=== PATIENT | female | born 1995 | race African-American/Black ===

== ENCOUNTER 2016-08-25 00:10 | Emergency (ER) | payer BC ==
[2016-08-25 00:48] VITALS: BP 138/91
--- NOTE | 2016-08-25 01:04 | EDM.PDOC ---
ED HPI GENERAL MEDICAL PROBLEM - General Chief Complaint: 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 Problem Stated Complaint: VOMITING NOT FEELING WELL Time Seen by Provider: 08/25/16 00:55 Source of Information: Reports: Patient, Old Records, RN Notes Reviewed History Limitations: Reports: No Limitations - History of Present Illness INITIAL COMMENTS - FREE TEXT/NARRATIVE: Drove herself here Chief complaint Vomiting History of present illness 21-year-old female, she is just 2 months , has return to work effective refractory, started developing nausea vomiting and diarrhea today. 3 episodes of diarrhea and 2 episodes of emesis. Because of this she was sent out from work and told to get checked. Her 2-month-old daughter was ill last week and was taken to the doctor 3 times and is finally improving. She has had some right-sided abdominal pain for a week She delivered vaginally She is not breast-feeding No fever Tired Headache Pain Score (Numeric/FACES): 6 - Related Data Allergies Allergy/AdvReac Type Severity Reaction Status Date / Time cefixime [From Suprax] Allergy Rash Verified 08/25/16 00:39 Home Meds: Home Meds Albuterol [Ventolin HFA] 2 puff INH BID PRN 08/25/16 [History] Albuterol/Ipratropium [Combivent Respimat] 2 puff INH QID PRN 08/25/16 [History] Budesonide/Formoterol Fumarate [Symbicort 80-4.5 Mcg Inhaler] 1 puff IH DAILY [History] Montelukast [Singulair] 10 mg PO ONETIME 08/25/16 [History] Ondansetron [Ondansetron ODT] 4 mg PO Q6H PRN #5 tab.rapdis 08/25/16 [Rx] Past Medical History Respiratory History: Reports: Asthma [employer]ER History: Reports: Psychiatric History: Reports: Anxiety - Infectious Disease History Infectious Disease History: Reports: Chicken Pox Social & Family History - Tobacco Use Smoking Status *Q: Never Smoker Second Hand Smoke Exposure: No - Caffeine Use Caffeine Use: Reports: Soda, Tea - Alcohol Use Days Per Week of Alcohol Use: 0 - Recreational Drug Use Recreational Drug Use: No ED ROS GENERAL - Review of Systems Review Of Systems: See Below Constitutional: Reports: Fatigue. Denies: Fever, Chills, Diaphoresis HEENT: Reports: No Symptoms Respiratory: Reports: No Symptoms Cardiovascular: Reports: No Symptoms Endocrine: Reports: No Symptoms GI/Abdominal: Reports: Abdominal Pain, Diarrhea, Nausea, Vomiting. Denies: Distension : Reports: No Symptoms Musculoskeletal: Reports: No Symptoms Skin: Reports: No Symptoms Neurological: Reports: No Symptoms Psychiatric: Reports: No Symptoms Immunologic: Reports: No Symptoms ED EXAM, GI/ABD - Physical Exam Exam: See Below Exam Limited By: No Limitations General Appearance: Alert, No Apparent Distress, Other (Vital signs normal, no difficulty speaking or breathing, looks tired, color normal) Eyes: Bilateral: Normal Appearance Ears: Normal External Exam, Normal Canal, Hearing Grossly Normal, Normal TMs Nose: Normal Inspection, Normal Mucosa. No: Nasal Swelling Throat/Mouth: Normal Lips, Normal Gums, Normal Oropharynx, Other ([facility]) Head: Atraumatic Neck: Normal Inspection, Supple, Non-Tender Respiratory/Chest: No Respiratory Distress, Lungs Clear, Normal Breath Sounds Cardiovascular: Normal Peripheral Pulses, Regular Rate, Rhythm GI/Abdominal: Normal Bowel Sounds, Soft, No Distention, No Mass, Other (Mild tenderness to the right side of the abdomen above McBurney's area, no guarding no rebound) Back Exam: Normal Inspection Extremities: Normal Inspection, Non-Tender, No Pedal Edema, Normal Capillary Refill Neurological: Alert, Oriented, No Motor/Sensory Deficits Psychiatric: Normal Mood Skin Exam: Warm, Dry, Intact, Normal Color, No Rash Lymphatic: No Adenopathy Course - Vital Signs Last Recorded V/S: Last Vital Signs Temp 36.4 C 08/25/16 00:46 Pulse 69 08/25/16 00:46 Resp 16 08/25/16 00:46 BP 138/91 H 08/25/16 00:46 Pulse Ox 98 08/25/16 00:46 - Re-Assessments/Exams Free Text/Narrative Re-Assessment/Exam: 08/25/16 01:12 21-year-old female with a one-day history of nausea vomiting diarrhea. Most likely viral gastroenteritis Differential diagnoses includes other causes of diarrhea Drink plenty of fluids, small amounts frequently Electrolyte replacement solutions Ondansetron as needed for nausea Note for missing work Departure - Departure Time of Disposition: 01:04 Disposition: Home, Self-Care 01 Condition: good Clinical Impression: Gastroenteritis - Discharge Information Prescriptions: Ondansetron [Ondansetron ODT] 4 mg PO Q6H PRN #5 tab.rapdis PRN Reason: Nausea or vomiting Instructions: Viral Gastroenteritis, Adult, [id number] Referrals: PCP,None [Primary Care Provider] - Forms: ED Department Discharge, Return to Work/School Form Additional Instructions: Return to emergency if you have repeated vomiting, high fever, severe weakness or other new symptoms.
== END 2016-08-25 01:26 | disposition home or self-care (01) ==
LOC: JP.ED 00:10
DX: K52.9 Noninfective gastroenteritis and colitis, unspecified (principal); J45.909 Unspecified asthma, uncomplicated; Z88.1 Allergy status to other antibiotic agents; Z79.899 Other long term (current) drug therapy
CPT/HCPCS: 99284

== ENCOUNTER 2016-09-01 23:12 | Emergency (ER) | payer BC ==
[2016-09-01 23:30] VITALS: BP 145/89
[2016-09-01] MEDS ORDERED: Sodium Chloride 0.9% 1,000 ML IV SCH (23:45)
[2016-09-01] MEDS ORDERED: Ondansetron 4 MG/2 ML SDV IVPUSH ONE (23:47)
[2016-09-02] MEDS ORDERED: Lactated Ringers 1,000 ML IV SCH (00:30)
--- NOTE | 2016-09-02 02:05 | EDM.PDOC ---
ED HPI GENERAL MEDICAL PROBLEM - General Chief Complaint: Abdominal Pain Stated Complaint: STOMACH PAIN/VOMITING Time Seen by Provider: 09/01/16 23:45 Source of Information: Reports: Patient History Limitations: Reports: No Limitations - History of Present Illness INITIAL COMMENTS - FREE TEXT/NARRATIVE: History of present illness: [21-year-old female presenting with nausea vomiting for the last 24 hours. No diarrhea or dysuria with this. No constipation no fever or chills. She just had her period. She has had some mild right lower quadrant abdominal pain with this. No prior appendectomy. She has 1 baby.] Review of systems: As per history of present illness and below otherwise all systems reviewed and negative. Past medical history: As per history of present illness and as reviewed below otherwise noncontributory. Surgical history: As per history of present illness and as reviewed below otherwise noncontributory. Social history: No reported history of drug or alcohol abuse. Family history: As per history of present illness and as reviewed below otherwise noncontributory. Physical exam: HEENT: Atraumatic, normocephalic, pupils reactive, negative for conjunctival pallor or scleral icterus, mucous membranes moist, throat clear, neck supple, nontender, trachea midline. Lungs: Clear to auscultation, breath sounds equal bilaterally, chest nontender. Heart: S1S2, regular, negative for clicks, rubs, or JVD. Abdomen: Soft, nondistended, she does have tenderness to palpation in the right lower quadrant without peritoneal signs. Negative for masses or hepatosplenomegaly. Negative for costovertebral tenderness. Pelvis: Stable nontender. Genitourinary: Deferred. Rectal: Deferred. Extremities: Atraumatic, negative for cords or calf pain. Neurovascular unremarkable. Neuro: Awake, alert, oriented. Cranial nerves II through XII unremarkable. Cerebellum unremarkable. Motor and sensory unremarkable throughout. Exam nonfocal. Diagnostics: [CBC shows anemia with hemoglobin of 10.3 elevated white count is not present. Complete metabolic panel is unremarkable urine test is negative urinalysis unremarkable abdominal pelvic CT are negative.] Therapeutics: [She received IV fluids in the ER with IV Zofran in the improved with this.] Impression: [Nausea and vomiting] Plan: [I'm discharging her with Zofran and she can follow-up in the clinic or the ER she's not improving over the next couple of days.] Definitive disposition and diagnosis as appropriate pending reevaluation and review of above. Right Middle Abdomen Pain Score (Numeric/FACES): 6 - Related Data Allergies Allergy/AdvReac Type Severity Reaction Status Date / Time cefixime [From Suprax] Allergy Rash Verified 08/25/16 00:39 Home Meds: Home Meds Albuterol [Ventolin HFA] 2 puff INH BID PRN 08/25/16 [History] Albuterol/Ipratropium [Combivent Respimat] 2 puff INH QID PRN 08/25/16 [History] Budesonide/Formoterol Fumarate [Symbicort 80-4.5 Mcg Inhaler] 1 puff IH DAILY [History] Montelukast [Singulair] 10 mg PO ONETIME 08/25/16 [History] Past Medical History - Past Health History Medical/Surgical History: Denies Medical/Surgical History 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 ED EXAM, GI/ABD - Physical Exam Exam: See Below Course - Vital Signs Last Recorded V/S: Last Vital Signs Temp 35.7 C 09/01/16 23:29 Pulse 95 09/01/16 23:29 Resp 18 09/01/16 23:29 BP 145/89 H 09/01/16 23:29 Pulse Ox 99 09/01/16 23:29 - Orders/Labs/Meds Orders: Active Orders 24 hr Category Date Time Status Abdomen Pelvis wo Cont [CT] Stat Exams 09/02/16 00:01 Ordered UA W/MICROSCOPIC [URIN] Stat Lab 09/01/16 23:45 Uncollected Lactated Ringers [Ringers, Lactated] 1,000 ml Med 09/02/16 00:30 Active IV ASDIRECTED Medication Orders Lactated Ringer's (Ringers, Lactated) 1,000 mls @ 999 mls/hr IV ASDIRECTED [facility] Labs: Laboratory Tests 09/01/16 09/01/16 09/02/16 Range/Units 23:45 23:45 00:34 WBC 6.8 (4.5-11.0) K/uL RBC 4.30 (3.30-5.50) M/uL Hgb 10.3 L (12.0-15.0) g/dL Hct 32.8 L (36.0-48.0) % MCV 76 L (80-98) fL MCH 24 L (27-31) pg MCHC 31 L (32-36) % Plt Count 425 H (150-400) K/uL Neut % (Auto) 45 (36-66) % Lymph % (Auto) 42 (24-44) % [place] % (Auto) 9 H (2-6) % Eos % (Auto) 4 (2-4) % Baso % (Auto) 1 (0-1) % Sodium 141 (140-148) mmol/L Potassium 3.0 L (3.6-5.2) mmol/L Chloride 103 (100-108) mmol/L Carbon Dioxide 26 (21-32) mmol/L Anion Gap 15.0 H (5.0-14.0) mmol/L BUN 6 L (7-18) mg/dL Creatinine 0.8 (0.6-1.0) mg/dL Est Cr Clr Drug Dosing 87.95 mL/min Estimated GFR (MDRD) > 60 (>60) Glucose 93 (74-106) mg/dL Calcium 8.5 (8.5-10.1) mg/dL Total Bilirubin 0.2 (0.2-1.0) mg/dL AST 17 (15-37) U/L ALT 16 (12-78) U/L Alkaline Phosphatase 82 (46-116) U/L Total Protein 6.9 (6.4-8.2) g/dL Albumin 3.7 (3.4-5.0) g/dL Globulin 3.2 (2.3-3.5) g/dL Albumin/Globulin Ratio 1.2 (1.2-2.2) HCG, Qual Negative Meds: Medications Generic Name Dose Route Start Last Admin Trade Name Freq PRN Reason Stop Dose Admin Lactated Ringer's 1,000 mls @ 999 mls/hr 06/21/17 00:30 Ringers, Lactated IV ASDIRECTED [facility] Discontinued Medications Generic Name Dose Route Start Last Admin Trade Name Tereso PRN Reason Stop Dose Admin Sodium Chloride 1,000 mls @ 500 mls/hr 09/01/16 23:45 09/02/16 00:00 Normal Saline IV 500 mls/hr ASDIRECTED [facility] Administration Ondansetron HCl 4 mg 09/01/16 23:47 09/02/16 00:00 Zofran IVPUSH 09/01/16 23:48 4 mg ONETIME ONE Administration Departure - Departure Time of Disposition: 02:00 Disposition: Home, Self-Care 01 Condition: Good Clinical Impression: Nausea and vomiting Qualifiers: Vomiting type: unspecified Vomiting Intractability: non-intractable Qualified Code(s): R11.2 - Nausea with vomiting, unspecified - Discharge Information Forms: ED Department Discharge Additional Instructions: He will are provided with Zofran a medication that you can use for nausea and vomiting. You are excused from work tonight and tomorrow night and you can show this to your employer as your work excuse. Please follow-up in the clinic or the ER if not improving. - My Orders Last 24 Hours: My Active Orders 09/01/16 23:45 UA W/MICROSCOPIC [URIN] Stat 09/02/16 00:01 Abdomen Pelvis wo Cont [CT] Stat 09/02/16 00:30 Lactated Ringers [Ringers, Lactated] 1,000 ml IV ASDIRECTED - Assessment/Plan Last 24 Hours: My Active Orders 09/01/16 23:45 UA W/MICROSCOPIC [URIN] Stat 09/02/16 00:01 Abdomen Pelvis wo Cont [CT] Stat 09/02/16 00:30 Lactated Ringers [Ringers, Lactated] 1,000 ml IV ASDIRECTED
== END 2016-09-02 02:45 | disposition home or self-care (01) ==
LOC: JP.ED 23:12
DX: R11.2 Nausea with vomiting, unspecified (principal); R10.31 Right lower quadrant pain; J45.909 Unspecified asthma, uncomplicated; Z79.899 Other long term (current) drug therapy; Z88.1 Allergy status to other antibiotic agents
CPT/HCPCS: 36415; 74176; 80053; 84703; 85025; 96361; 96374; 99284; J2405; J7040; J7120

== ENCOUNTER 2016-09-10 22:02 | Emergency (ER) | payer BC ==
[2016-09-10 22:20] VITALS: BP 131/91
--- NOTE | 2016-09-10 22:59 | EDM.PDOC ---
ED HPI GENERAL MEDICAL PROBLEM - General Chief Complaint: 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 Problem Stated Complaint: VOMITING Time Seen by Provider: 09/10/16 22:14 Source of Information: Reports: Patient History Limitations: Reports: No Limitations - History of Present Illness INITIAL COMMENTS - FREE TEXT/NARRATIVE: History of present illness: [21-year-old female I saw several days ago with nausea vomiting and epigastric abdominal pain since then she's been seen in the [place] ER as well and they told her that they wondered if she had and also she'll need to be scoped but they didn't set that up. She doctors in [place] and her doctors there. Presents here continue to complain of epigastric abdominal pain and intermittent nausea and vomiting. She does have Zofran for that and also started on omeprazole. She' s had no fevers or chills. Her urine test was negative last time I saw her but she was a little anemic.] Review of systems: As per history of present illness and below otherwise all systems reviewed and negative. Past medical history: As per history of present illness and as reviewed below otherwise noncontributory. Surgical history: As per history of present illness and as reviewed below otherwise noncontributory. Social history: No reported history of drug or alcohol abuse. Family history: As per history of present illness and as reviewed below otherwise noncontributory. Physical exam: HEENT: Atraumatic, normocephalic, pupils reactive, negative for conjunctival pallor or scleral icterus, mucous membranes moist, throat clear, neck supple, nontender, trachea midline. She appears very comfortable in no acute distress tenderness sitting in the room to extending. Lungs: Clear to auscultation, breath sounds equal bilaterally, chest nontender. Heart: S1S2, regular, negative for clicks, rubs, or JVD. Abdomen: She has minor tenderness to palpation of the epigastric area she has no peritoneal signs bowel sounds are active. Pelvis: Stable nontender. Genitourinary: Deferred. Rectal: Deferred. Extremities: Atraumatic, negative for cords or calf pain. Neurovascular unremarkable. Her skin turgor is good Neuro: Awake, alert, oriented. Exam nonfocal. Diagnostics: [] Therapeutics: [] Impression: [Nausea and vomiting with epigastric abdominal pain] Plan: [I've advised her to just call [facility] tomorrow to see if somebody can sit up endoscopy for her. She's been seen by me and there and we both have come to the conclusion that the next step in the process of working her up would be endoscopy. She looks good now I don't think any further workup other than what we've done is necessary at this point] Definitive disposition and diagnosis as appropriate pending reevaluation and review of above. Upper Mid Abdomen Pain Score (Numeric/FACES): 8 - Related Data Allergies Allergy/AdvReac Type Severity Reaction Status Date / Time cefixime [From Suprax] Allergy Rash Verified 08/25/16 00:39 Home Meds: Home Meds Albuterol [Ventolin HFA] 2 puff INH BID PRN 08/25/16 [History] Albuterol/Ipratropium [Combivent Respimat] 2 puff INH QID PRN 08/25/16 [History] Budesonide/Formoterol Fumarate [Symbicort 80-4.5 Mcg Inhaler] 1 puff IH DAILY [History] Montelukast [Singulair] 10 mg PO ONETIME 08/25/16 [History] Omeprazole 20 mg PO DAILY 09/10/16 [History] Past Medical History - Past Health History Medical/Surgical History: Denies Medical/Surgical History Respiratory History: Reports: Asthma IN [employer] History: Reports: Psychiatric History: Reports: Anxiety - Infectious Disease History Infectious Disease History: Reports: Chicken Pox Social & Family History - Tobacco Use Smoking Status *Q: Current Status Unknown Second Hand Smoke Exposure: No - Caffeine Use Caffeine Use: Reports: Soda - Alcohol Use Days Per Week of Alcohol Use: 0 - Recreational Drug Use Recreational Drug Use: No ED ROS GENERAL - Review of Systems Review Of Systems: ROS reveals no pertinent complaints other than HPI. ED EXAM, GI/ABD - Physical Exam Exam: See Below Course - Vital Signs Last Recorded V/S: Last Vital Signs Temp 35.8 C 09/10/16 22:19 Pulse 99 09/10/16 22:19 Resp 16 09/10/16 22:19 BP 131/91 H 09/10/16 22:19 Pulse Ox 97 09/10/16 22:19 Departure - Departure Time of Disposition: 22:57 Disposition: Home, Self-Care 01 Condition: Good Clinical Impression: Epigastric abdominal pain Nausea and vomiting Qualifiers: Vomiting type: unspecified Vomiting Intractability: unspecified Qualified Code( s): R11.2 - Nausea with vomiting, unspecified - Discharge Information Forms: ED Department Discharge Additional Instructions: Once again I recommend that you call [facility] and try to get scheduled for upper endoscopy. 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 Continue with the Zofran and omeprazole
== END 2016-09-10 23:20 | disposition home or self-care (01) ==
LOC: JP.ED 22:02
DX: R10.13 Epigastric pain (principal); R11.2 Nausea with vomiting, unspecified; F41.9 Anxiety disorder, unspecified; Z79.899 Other long term (current) drug therapy; J45.909 Unspecified asthma, uncomplicated; Z88.1 Allergy status to other antibiotic agents
CPT/HCPCS: 99284

== ENCOUNTER 2016-09-18 22:51 | Emergency (ER) | payer BC ==
[2016-09-18 23:34] VITALS: BP 131/86
[2016-09-19] MEDS ORDERED: Sodium Chloride 0.9% 10 ML Syringe FLUSH PRN (00:43)
[2016-09-19] MEDS ORDERED: Sodium Chloride 0.9% 1,000 ML IV SCH (00:45)
[2016-09-19] MEDS ORDERED: Pantoprazole 40 MG Vial IVPUSH ONE (01:22)
[2016-09-19] MEDS ORDERED: Metoclopramide 10 MG/2 ML SDV IVPUSH ONE (01:25)
--- NOTE | 2016-09-19 02:28 | EDM.PDOC ---
ED HPI GENERAL MEDICAL PROBLEM - General Chief Complaint: Abdominal Pain Stated Complaint: VOMITING Time Seen by Provider: 09/19/16 00:25 Source of Information: Reports: Patient, Old Records History Limitations: Reports: No Limitations - History of Present Illness INITIAL COMMENTS - FREE TEXT/NARRATIVE: nausea and vomiting for 3 days; this is a 21 year old female present to ER with concerns of prolong nausea and vomiting. reports ate macroni, garlic bread, the food sits for about 20 to 30 minutes, then she feel sick and vomits everything up. has Zofran at home, but doesn't like taking it because make her sleepy. work nights at [employer] has 3 month old daughter at home. denies any other drug use past hx of ulcer, dx 2 years ago Primary Care Provider; MANUELA Camargo. chart review; of ER visits at [place], [place]. -08-25-16; vomting -09-01-16 stomache pain and vomiting -09-10-16 vomiting and constipation -09-02-[address] -no acue intra-abdominal or pelvic abnormality Provider and Primary Care recommend Endoscopy. - Related Data Allergies Allergy/AdvReac Type Severity Reaction Status Date / Time cefixime [From Suprax] Allergy Rash Verified 08/25/16 00:39 Home Meds: Home Meds Albuterol [Ventolin HFA] 2 puff INH BID PRN 08/25/16 [History] Albuterol/Ipratropium [Combivent Respimat] 2 puff INH QID PRN 08/25/16 [History] Budesonide/Formoterol Fumarate [Symbicort 80-4.5 Mcg Inhaler] 1 puff IH DAILY [History] Montelukast [Singulair] 10 mg PO ONETIME 08/25/16 [History] Omeprazole 20 mg PO DAILY 09/10/16 [History] Past Medical History - Past Health History Medical/Surgical History: Denies Medical/Surgical History Respiratory History: Reports: Asthma [employer] P[employer] History: Reports: Psychiatric History: Reports: Anxiety - Infectious Disease History Infectious Disease History: Reports: Chicken Pox Social & Family History - Family History Family Medical History: Noncontributory - Tobacco Use Smoking Status *Q: Never Smoker Second Hand Smoke Exposure: No - Caffeine Use Caffeine Use: Reports: Soda - Alcohol Use Days Per Week of Alcohol Use: 0 - Recreational Drug Use Recreational Drug Use: No - Living Situation & Occupation Living situation: Reports: with Family Occupation: Employed ED ROS GENERAL - Review of Systems Review Of Systems: See Below Constitutional: Reports: Malaise, Decreased Appetite HEENT: Reports: No Symptoms Respiratory: Reports: No Symptoms Cardiovascular: Reports: No Symptoms Endocrine: Reports: No Symptoms GI/Abdominal: Reports: Abdominal Pain, Nausea, Vomiting : Reports: No Symptoms Musculoskeletal: Reports: No Symptoms Skin: Reports: No Symptoms Neurological: Reports: No Symptoms Psychiatric: Reports: No Symptoms Hematologic/Lymphatic: Reports: No Symptoms Immunologic: Reports: No Symptoms ED EXAM, GI/ABD - Physical Exam Exam: See Below Exam Limited By: No Limitations General Appearance: Alert, WD/WN, No Apparent Distress Eyes: Bilateral: Normal Appearance, EOMI Ears: Normal External Exam, Normal Canal, Hearing Grossly Normal, Normal TMs Nose: Normal Inspection, Normal Mucosa, No Blood Throat/Mouth: Normal Inspection, Normal Lips, Normal Teeth, Normal Gums, Normal Oropharynx, Normal Voice, No Airway Compromise Head: Atraumatic Neck: Normal Inspection, Supple, Non-Tender, Full Range of Motion Respiratory/Chest: No Respiratory Distress Cardiovascular: Normal Peripheral Pulses, Regular Rate, Rhythm, No Edema, No Gallop, No JVD, No Murmur, No Rub GI/Abdominal: Normal Bowel Sounds, Soft, No Organomegaly, No Distention, No Abnormal Bruit, No Mass, Hypoactive Bowel Sounds, Tenderness (Female) Exam: Deferred Rectal (Female) Exam: Deferred Back Exam: Normal Inspection, Full Range of Motion Neurological: Alert, Oriented, CN II-XII Intact, Normal Cognition, Normal Gait, Normal Reflexes, No Motor/Sensory Deficits Psychiatric: Normal Affect, Normal Mood Skin Exam: Warm, Dry, Intact, Normal Color, No Rash Lymphatic: No Adenopathy Course - Vital Signs Last Recorded V/S: Last Vital Signs Temp 36.1 C 09/18/16 23:33 Pulse 82 09/18/16 23:33 Resp 16 09/18/16 23:33 BP 131/86 09/18/16 23:33 Pulse Ox 99 09/18/16 23:33 - Orders/Labs/Meds Orders: Active Orders 24 hr Category Date Time Status Saline Lock Insert [OM.PC] Routine Oth 09/19/16 00:43 Ordered Labs: Laboratory Tests 09/18/16 09/19/16 09/19/16 Range/Units 23:20 00:10 00:25 WBC (4.5-11.0) K/uL RBC (3.30-5.50) M/uL Hgb (12.0-15.0) g/dL Hct (36.0-48.0) % MCV (80-98) fL MCH (27-31) pg MCHC (32-36) % Plt Count (150-400) K/uL Neut % (Auto) (36-66) % Lymph % (Auto) (24-44) % Rice % (Auto) (2-6) % Eos % (Auto) (2-4) % Baso % (Auto) (0-1) % Sodium (140-148) mmol/L Potassium (3.6-5.2) mmol/L Chloride (100-108) mmol/L Carbon Dioxide (21-32) mmol/L Anion Gap (5.0-14.0) mmol/L BUN (7-18) mg/dL Creatinine (0.6-1.0) mg/dL Est Cr Clr Drug Dosing mL/min Estimated GFR (MDRD) (>60) Glucose (74-106) mg/dL Calcium (8.5-10.1) mg/dL Magnesium (1.8-2.4) mg/dL Total Bilirubin (0.2-1.0) mg/dL AST (15-37) U/L ALT (12-78) U/L Alkaline Phosphatase (46-116) U/L Total Protein (6.4-8.2) g/dL Albumin (3.4-5.0) g/dL Globulin (2.3-3.5) g/dL Albumin/Globulin Ratio (1.2-2.2) Amylase (25-115) U/L Lipase (73-393) U/L TSH, Ultra Sensitive (0.358-3.740) uIU/mL Urine Color Yellow Urine Appearance Clear Urine pH 5.0 (4.5-8.0) Ur Specific [place] 1.015 (1.008-1.030) Urine Protein 30 H (NEGATIVE) mg/dL Urine Glucose (UA) Normal (NEGATIVE) mg/dL Urine Ketones Negative (NEGATIVE) mg/dL Urine Occult Blood Large (NEGATIVE) Urine Nitrite Negative (NEGATIVE) Urine Bilirubin Negative (NEGATIVE) Urine Urobilinogen Normal (NORMAL) mg/dL Ur Leukocyte Esterase Negative (NEGATIVE) Urine RBC 10-20 H (0-5) Urine WBC 0-5 (0-5) Ur Epithelial Cells Few Amorphous Sediment Not seen Urine Bacteria Not seen Urine Mucus Few Urine HCG, Qual Negative Urine Opiates Screen Negative (NEGATIVE) Ur Oxycodone Screen Negative (NEGATIVE) Urine Methadone Screen Negative (NEGATIVE) Ur Propoxyphene Screen Negative (NEGATIVE) Ur Barbiturates Screen Negative (NEGATIVE) Ur Tricyclics Screen Negative (NEGATIVE) Ur Phencyclidine Scrn Negative (NEGATIVE) Ur Amphetamine Screen Negative (NEGATIVE) U Methamphetamines Scrn Negative (NEGATIVE) Urine MDMA Screen Negative (NEGATIVE) U Benzodiazepines Scrn Negative (NEGATIVE) U Cocaine Metab Screen Negative (NEGATIVE) U Marijuana (THC) Screen Negative (NEGATIVE) 09/19/16 09/19/16 Range/Units 00:52 00:52 WBC 7.1 (4.5-11.0) K/uL RBC 4.51 (3.30-5.50) M/uL Hgb 10.8 L (12.0-15.0) g/dL Hct 34.0 L (36.0-48.0) % MCV 75 L (80-98) fL MCH 24 L (27-31) pg MCHC 32 (32-36) % Plt Count 390 (150-400) K/uL Neut % (Auto) 59 (36-66) % Lymph % (Auto) 34 (24-44) % Rice % (Auto) 6 (2-6) % Eos % (Auto) 1 L (2-4) % Baso % (Auto) 1 (0-1) % Sodium 138 L (140-148) mmol/L Potassium 3.9 (3.6-5.2) mmol/L Chloride 103 (100-108) mmol/L Carbon Dioxide 27 (21-32) mmol/L Anion Gap 11.9 (5.0-14.0) mmol/L BUN 8 (7-18) mg/dL Creatinine 0.9 (0.6-1.0) mg/dL Est Cr Clr Drug Dosing 78.86 mL/min Estimated GFR (MDRD) > 60 (>60) Glucose 92 (74-106) mg/dL Calcium 9.0 (8.5-10.1) mg/dL Magnesium 1.8 (1.8-2.4) mg/dL Total Bilirubin 0.3 (0.2-1.0) mg/dL AST 15 (15-37) U/L ALT 14 (12-78) U/L Alkaline Phosphatase 70 (46-116) U/L Total Protein 7.5 (6.4-8.2) g/dL Albumin 3.9 (3.4-5.0) g/dL Globulin 3.6 H (2.3-3.5) g/dL Albumin/Globulin Ratio 1.1 L (1.2-2.2) Amylase 65 (25-115) U/L Lipase 107 (73-393) U/L TSH, Ultra Sensitive 0.291 L (0.358-3.740) uIU/mL Urine Color Urine Appearance Urine pH (4.5-8.0) Ur Specific [place] (1.008-1.030) Urine Protein (NEGATIVE) mg/dL Urine Glucose (UA) (NEGATIVE) mg/dL Urine Ketones (NEGATIVE) mg/dL Urine Occult Blood (NEGATIVE) Urine Nitrite (NEGATIVE) Urine Bilirubin (NEGATIVE) Urine Urobilinogen (NORMAL) mg/dL Ur Leukocyte Esterase (NEGATIVE) Urine RBC (0-5) Urine WBC (0-5) Ur Epithelial Cells Amorphous Sediment Urine Bacteria Urine Mucus Urine HCG, Qual Urine Opiates Screen (NEGATIVE) Ur Oxycodone Screen (NEGATIVE) Urine Methadone Screen (NEGATIVE) Ur Propoxyphene Screen (NEGATIVE) Ur Barbiturates Screen (NEGATIVE) Ur Tricyclics Screen (NEGATIVE) Ur Phencyclidine Scrn (NEGATIVE) Ur Amphetamine Screen (NEGATIVE) U Methamphetamines Scrn (NEGATIVE) Urine MDMA Screen (NEGATIVE) U Benzodiazepines Scrn (NEGATIVE) U Cocaine Metab Screen (NEGATIVE) U Marijuana (THC) Screen (NEGATIVE) Meds: Medications Discontinued Medications Generic Name Dose Route Start Last Admin Trade Name Freq PRN Reason Stop Dose Admin Sodium Chloride 1,000 mls @ 999 mls/hr 09/19/16 00:45 09/19/16 01:18 Normal Saline IV 999 mls/hr ASDIRECTED OUMOU Administration Metoclopramide HCl 5 mg 09/19/16 01:25 09/19/16 01:34 Reglan IVPUSH 09/19/16 01:26 5 mg ONETIME ONE Administration Pantoprazole Sodium 40 mg 09/19/16 01:22 09/19/16 01:31 Protonix Iv IVPUSH 09/19/16 01:23 40 mg ONETIME ONE Administration Sodium Chloride 10 ml 09/19/16 00:43 09/19/16 01:16 Saline Flush FLUSH 10 ml ASDIRECTED PRN Administration Keep Vein Open Departure - Departure Time of Disposition: 02:40 Disposition: Home, Self-Care 01 Condition: Good Clinical Impression: Nausea and vomiting Qualifiers: Vomiting type: cyclical vomiting Vomiting Intractability: non-intractable Qualified Code(s): G43.A0 - Cyclical vomiting, not intractable - Discharge Information Instructions: Nausea, Adult Referrals: PCP,None [Primary Care Provider] - Forms: ED Department Discharge Care Plan Goals: Nausea and Vomiting -given IV fluids. IV Reglan, IV Protonix with improvement of symptoms will discharge to home -script for Reglan 10mg by mouth 30 mins before meals and at bedtime -continue to take Prilosec/Omeprazole daily for ulcer prevention/management -diet; clear liquids advance as tolerated -avoid greasy, fried or spicy foods Follow up with Primary Care next week for recheck. Return to ER if symptoms return. - Problem List & Annotations (1) Nausea and vomiting SNOMED Code(s): 24438495 Code(s): R11.2 - NAUSEA WITH VOMITING, UNSPECIFIED Status: Acute Priority : High Qualifiers: Vomiting type: cyclical vomiting Vomiting Intractability: non-intractable Qualified Code(s): G43.A0 - Cyclical vomiting, not intractable (2) Epigastric abdominal pain SNOMED Code(s): 30031328 Code(s): R10.13 - EPIGASTRIC PAIN Status: Acute Priority: High - Problem List Review Problem List Initiated/Reviewed/Updated: Yes - My Orders Last 24 Hours: My Active Orders 09/19/16 00:43 Saline Lock Insert [OM.PC] Routine - Assessment/Plan Last 24 Hours: My Active Orders 09/19/16 00:43 Saline Lock Insert [OM.PC] Routine Plan: Nausea and Vomiting -given IV fluids. IV Reglan, IV Protonix with improvement of symptoms will discharge to home -script for Reglan 10mg by mouth 30 mins before meals and at bedtime -continue to take Prilosec/Omeprazole daily for ulcer prevention/management -diet; clear liquids advance as tolerated -avoid greasy, fried or spicy foods Follow up with Primary Care next week for recheck. Return to ER if symptoms return.
== END 2016-09-19 02:40 | disposition home or self-care (01) ==
LOC: JP.ED 22:51
DX: G43.A0 Cyclical vomiting, in migraine, not intractable (principal); F41.9 Anxiety disorder, unspecified; J45.909 Unspecified asthma, uncomplicated; Z88.8 Allergy status to other drugs, medicaments and biological substances; Z79.899 Other long term (current) drug therapy
CPT/HCPCS: 36415; 80053; 80305; 81001; 81025; 82150; 83690; 83735; 84443; 85025; 96361; 96374; 96375; 99284; C9113; J2765; J7040; J7050

== ENCOUNTER 2016-09-22 20:21 | Emergency (ER) | payer BC ==
[2016-09-22 21:47] VITALS: BP 133/88
--- NOTE | 2016-09-22 23:50 | EDM.PDOC ---
ED HPI GENERAL MEDICAL PROBLEM - General Chief Complaint: Lower Extremity Injury/Pain Stated Complaint: L ANKLE INJURY Time Seen by Provider: 09/22/16 21:47 Source of Information: Reports: Patient History Limitations: Reports: No Limitations - History of Present Illness INITIAL COMMENTS - FREE TEXT/NARRATIVE: This patient said that she twisted her right ankle and then all horse stepped on it. She complains of pain to the lateral side of the right ankle mostly the area distal to the lateral malleolus. She's able to bear weight if she puts weight on her toes. Left Ankle Pain Score (Numeric/FACES): 8 - Related Data Allergies Allergy/AdvReac Type Severity Reaction Status Date / Time cefixime [From Suprax] Allergy Rash Verified 09/22/16 21:50 Home Meds: Home Meds Albuterol [Ventolin HFA] 2 puff INH BID PRN 08/25/16 [History] Albuterol/Ipratropium [Combivent Respimat] 2 puff INH QID PRN 08/25/16 [History] Budesonide/Formoterol Fumarate [Symbicort 80-4.5 Mcg Inhaler] 1 puff IH DAILY [History] Montelukast [Singulair] 10 mg PO ONETIME 08/25/16 [History] Omeprazole 20 mg PO DAILY 09/10/16 [History] Past Medical History - Past Health History Medical/Surgical History: Denies Medical/Surgical History Respiratory History: Reports: Asthma 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: Reports: GERD 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: Psychiatric History: Reports: Anxiety - Infectious Disease History Infectious Disease History: Reports: Chicken Pox Social & Family History - Family History Family Medical History: Noncontributory - Tobacco Use Smoking Status *Q: Never Smoker Second Hand Smoke Exposure: No - Caffeine Use Caffeine Use: Reports: Soda - Alcohol Use Days Per Week of Alcohol Use: 0 - Recreational Drug Use Recreational Drug Use: No - Living Situation & Occupation Living situation: Reports: with Family Occupation: Employed Review of Systems - Review of Systems Review Of Systems: ROS reveals no pertinent complaints other than HPI. ED EXAM, GENERAL - Physical Exam Exam: See Below Exam Limited By: No Limitations General Appearance: Alert, WD/WN, No Apparent Distress Extremities: Other (Grossly normal appearance to the right foot and ankle. There is good range of motion. She does have some point tenderness to the lateral side of ankle inferior to the lateral malleolus and also the lateral side of the calcaneus. Neurovascular tendon all intact) Course - Vital Signs Last Recorded V/S: Last Vital Signs Temp 36.2 C 09/22/16 21:48 Pulse 88 09/22/16 21:48 Resp 16 09/22/16 21:48 BP 133/88 09/22/16 21:48 Pulse Ox 98 09/22/16 21:48 - Orders/Labs/Meds Orders: Active Orders 24 hr Category Date Time Status Ankle Min 3V Lt [CR] Stat Exams 09/22/16 22:18 Taken - Radiology Interpretation Free Text/Narrative:: X-ray of right ankle shows no fracture or dislocation Departure - Departure Time of Disposition: 23:49 Disposition: Home, Self-Care 01 Condition: Fair Clinical Impression: Contusion of right ankle - Discharge Information Forms: ED Department Discharge Additional Instructions: Wear the Wallace wrap for comfort. Continue to apply ice for the next 12-24 hours. Elevate the ankle also. Weightbearing as tolerated. You should be back to normal within a few days - My Orders Last 24 Hours: My Active Orders 09/22/16 22:18 Ankle Min 3V Lt [CR] Stat - Assessment/Plan Last 24 Hours: My Active Orders 09/22/16 22:18 Ankle Min 3V Lt [CR] Stat
--- NOTE | 2016-09-23 08:58 | CR ---
Ankle Min 3V Lt INDICATION: trauma FINDINGS: Negative left ankle. No acute fracture.
== END 2016-09-22 23:59 | disposition home or self-care (01) ==
LOC: JP.ED 20:21
DX: S90.02XA Contusion of left ankle, initial encounter (principal); Z79.899 Other long term (current) drug therapy; J45.909 Unspecified asthma, uncomplicated; K21.9 Gastro-esophageal reflux disease without esophagitis; Z88.1 Allergy status to other antibiotic agents; F41.9 Anxiety disorder, unspecified; V80.010A Animal-rider injured by fall from or being thrown from horse in noncollision accident, initial encounter
CPT/HCPCS: 73610-26-LT; 73610-LT; 99284

== ENCOUNTER 2016-12-27 11:25 | Emergency (ER) | payer BC ==
[2016-12-27 11:41] VITALS: BP 138/76
[2016-12-27] MEDS ORDERED: Sodium Chloride 0.9% 10 ML Syringe FLUSH PRN (11:42)
[2016-12-27] MEDS ORDERED: Ondansetron 4 MG/2 ML SDV IVPUSH ONE (11:44)
--- NOTE | 2016-12-27 11:53 | EDM.PDOC ---
ED HPI GENERAL MEDICAL PROBLEM - General Chief Complaint: 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 Problem Stated Complaint: CAN'T KEEP ANYTHING DOWN Time Seen by Provider: 12/27/16 11:38 Source of Information: Reports: Patient History Limitations: Reports: No Limitations - History of Present Illness INITIAL COMMENTS - FREE TEXT/NARRATIVE: Nancie presents today with complaints of nausea, vomiting and abdominal pain for three days. She reports she is not able to keep anything down. She also complains of chills off and on Quality: Reports: Ache, Dull Severity: Moderate Improves with: Reports: None Worsens with: Reports: None - Related Data Allergies Allergy/AdvReac Type Severity Reaction Status Date / Time amoxicillin [From Augmentin] Allergy Vomiting Verified 12/27/16 11:32 cefixime [From Suprax] Allergy Rash Verified 09/22/16 21:50 clavulanic acid Allergy Vomiting Verified 12/27/16 11:32 [From Augmentin] Home Meds: Home Meds Albuterol [Ventolin HFA] 2 puff INH BID PRN 08/25/16 [History] Albuterol/Ipratropium [Combivent Respimat] 2 puff INH QID PRN 08/25/16 [History] Budesonide/Formoterol Fumarate [Symbicort 80-4.5 Mcg Inhaler] 1 puff IH DAILY [History] Montelukast [Singulair] 10 mg PO ONETIME 08/25/16 [History] Omeprazole 20 mg PO DAILY 09/10/16 [History] Past Medical History - Past Health History Medical/Surgical History: Denies Medical/Surgical History Respiratory History: Reports: Asthma 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: Reports: GERD 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: Psychiatric History: Reports: Anxiety - Infectious Disease History Infectious Disease History: Reports: Chicken Pox Social & Family History - Family History Family Medical History: Noncontributory - Tobacco Use Smoking Status *Q: Never Smoker Second Hand Smoke Exposure: No - Caffeine Use Caffeine Use: Reports: Soda - Alcohol Use Days Per Week of Alcohol Use: 0 - Recreational Drug Use Recreational Drug Use: No - Living Situation & Occupation Living situation: Reports: with Family Occupation: Employed ED ROS GENERAL - Review of Systems Review Of Systems: See Below Constitutional: Reports: Chills. Denies: Fever, Weakness, Diaphoresis HEENT: Reports: No Symptoms Respiratory: Denies: Shortness of Breath, Wheezing, Cough, Sputum Cardiovascular: Denies: Chest Pain, Dyspnea on Exertion, Edema, Lightheadedness , Palpitations, Syncope Endocrine: Reports: No Symptoms GI/Abdominal: Reports: Abdominal Pain, Nausea, Vomiting. Denies: Black Stool, Bloody Stool, Constipation, Diarrhea, Difficulty Swallowing : Reports: Flank Pain. Denies: Dysuria, Frequency, Hematuria, Urgency Musculoskeletal: Reports: No Symptoms Skin: Reports: No Symptoms Neurological: Reports: No Symptoms Psychiatric: Reports: No Symptoms Hematologic/Lymphatic: Reports: No Symptoms Immunologic: Reports: No Symptoms ED EXAM, GI/ABD - Physical Exam Exam: See Below Exam Limited By: No Limitations General Appearance: Alert, WD/WN, Mild Distress Eyes: Bilateral: Normal Appearance, EOMI Ears: Normal External Exam, Normal Canal, Hearing Grossly Normal, Normal TMs Nose: Normal Inspection, Normal Mucosa, No Blood Throat/Mouth: Normal Lips, Normal Teeth, Normal Gums, Normal Oropharynx, Normal Voice, No Airway Compromise, Other (dry mucus membranes) Head: Atraumatic, Normocephalic Neck: Normal Inspection, Supple, Non-Tender, Full Range of Motion. No: Lymphadenopathy (R), Lymphadenopathy (L) Respiratory/Chest: No Respiratory Distress, Lungs Clear, Normal Breath Sounds, No Accessory Muscle Use, Chest Non-Tender Cardiovascular: Normal Peripheral Pulses, Regular Rate, Rhythm, No Edema, No Murmur, No Rub GI/Abdominal Exam: Normal Bowel Sounds, Soft, No Distention, No Mass, Rebound, Tender, Other (Tender with rebound pain to RLQ) Back Exam: Normal Inspection, Full Range of Motion, CVA Tenderness (L). No: CVA Tenderness (R), Muscle Spasm, Paraspinal Tenderness, Vertebral Tenderness Extremities: Normal Inspection, Normal Range of Motion, Non-Tender, No Pedal Edema, Normal Capillary Refill Neurological: Alert, Oriented, CN II-XII Intact, Normal Cognition, Normal Gait, No Motor/Sensory Deficits Psychiatric: Normal Affect, Normal Mood Skin Exam: Warm, Dry, Intact, No Rash, Other (Pale) Lymphatic: No Adenopathy Course - Vital Signs Last Recorded V/S: Last Vital Signs Temp 36.9 C 12/27/16 11:38 Pulse 76 12/27/16 11:38 Resp 14 12/27/16 11:38 BP 138/76 12/27/16 11:38 Pulse Ox 97 12/27/16 11:38 - Orders/Labs/Meds Orders: Active Orders 24 hr Category Date Time Status Sodium Chloride 0.9% [Normal Saline] 1,000 ml Med 12/27/16 12:00 Active IV ASDIRECTED Sodium Chloride 0.9% [Saline Flush] Med 12/27/16 11:42 Active 10 ml FLUSH ASDIRECTED PRN Saline Lock Insert [OM.PC] Routine Oth 12/27/16 11:42 Ordered Medication Orders Sodium Chloride (Normal Saline) 1,000 mls @ 1,000 mls/hr IV ASDIRECTED OUMOU Last Admin: 12/27/16 12:02 Dose: 1,000 mls/hr Sodium Chloride (Saline Flush) 10 ml FLUSH ASDIRECTED PRN PRN Reason: Keep Vein Open Last Admin: 12/27/16 11:59 Dose: 10 ml Labs: Laboratory Tests 12/27/16 12/27/16 12/27/16 Range/Units 11:54 11:54 12:10 WBC 6.9 (4.5-11.0) K/uL RBC 4.78 (3.30-5.50) M/uL Hgb 11.5 L (12.0-15.0) g/dL Hct 36.2 (36.0-48.0) % MCV 76 L (80-98) fL MCH 24 L (27-31) pg MCHC 32 (32-36) % Plt Count 405 H (150-400) K/uL Neut % (Auto) 73 H (36-66) % Lymph % (Auto) 21 L (24-44) % [place] % (Auto) 5 (2-6) % Eos % (Auto) 0 L (2-4) % Baso % (Auto) 1 (0-1) % Sodium 141 (140-148) mmol/L Potassium 3.5 L (3.6-5.2) mmol/L Chloride 105 (100-108) mmol/L Carbon Dioxide 25 (21-32) mmol/L Anion Gap 14.5 H (5.0-14.0) mmol/L BUN 8 (7-18) mg/dL Creatinine 0.8 (0.6-1.0) mg/dL Est Cr Clr Drug Dosing 88.36 mL/min Estimated GFR (MDRD) > 60 (>60) Glucose 85 (74-106) mg/dL Calcium 9.1 (8.5-10.1) mg/dL Total Bilirubin 0.6 D (0.2-1.0) mg/dL AST 14 L (15-37) U/L ALT 19 (12-78) U/L Alkaline Phosphatase 69 (46-116) U/L Total Protein 7.4 (6.4-8.2) g/dL Albumin 4.3 (3.4-5.0) g/dL Globulin 3.1 (2.3-3.5) g/dL Albumin/Globulin Ratio 1.4 (1.2-2.2) Urine Color Urine Appearance Urine pH (4.5-8.0) Ur Specific [place] (1.008-1.030) Urine Protein (NEGATIVE) mg/dL Urine Glucose (UA) (NEGATIVE) mg/dL Urine Ketones (NEGATIVE) mg/dL Urine Occult Blood (NEGATIVE) Urine Nitrite (NEGATIVE) Urine Bilirubin (NEGATIVE) Urine Urobilinogen (NORMAL) mg/dL Ur Leukocyte Esterase (NEGATIVE) Urine RBC (0-5) Urine WBC (0-5) Ur Epithelial Cells Amorphous Sediment Urine Bacteria Urine Mucus Urine HCG, Qual Negative 12/27/16 Range/Units 12:10 WBC (4.5-11.0) K/uL RBC (3.30-5.50) M/uL Hgb (12.0-15.0) g/dL Hct (36.0-48.0) % MCV (80-98) fL MCH (27-31) pg MCHC (32-36) % Plt Count (150-400) K/uL Neut % (Auto) (36-66) % Lymph % (Auto) (24-44) % [place] % (Auto) (2-6) % Eos % (Auto) (2-4) % Baso % (Auto) (0-1) % Sodium (140-148) mmol/L Potassium (3.6-5.2) mmol/L Chloride (100-108) mmol/L Carbon Dioxide (21-32) mmol/L Anion Gap (5.0-14.0) mmol/L BUN (7-18) mg/dL Creatinine (0.6-1.0) mg/dL Est Cr Clr Drug Dosing mL/min Estimated GFR (MDRD) (>60) Glucose (74-106) mg/dL Calcium (8.5-10.1) mg/dL Total Bilirubin (0.2-1.0) mg/dL AST (15-37) U/L ALT (12-78) U/L Alkaline Phosphatase (46-116) U/L Total Protein (6.4-8.2) g/dL Albumin (3.4-5.0) g/dL Globulin (2.3-3.5) g/dL Albumin/Globulin Ratio (1.2-2.2) Urine Color Yellow Urine Appearance Cloudy Urine pH 5.0 (4.5-8.0) Ur Specific [place] 1.020 (1.008-1.030) Urine Protein 100 H (NEGATIVE) mg/dL Urine Glucose (UA) Normal (NEGATIVE) mg/dL Urine Ketones 50 H (NEGATIVE) mg/dL Urine Occult Blood Large (NEGATIVE) Urine Nitrite Negative (NEGATIVE) Urine Bilirubin Negative (NEGATIVE) Urine Urobilinogen 1 (NORMAL) mg/dL Ur Leukocyte Esterase Negative (NEGATIVE) Urine RBC 75-100 H (0-5) Urine WBC Not seen (0-5) Ur Epithelial Cells Many Amorphous Sediment Not seen Urine Bacteria Moderate Urine Mucus Rare Urine HCG, Qual Lab work reviewed, patient does currently have her menstrual cycle. Meds: Medications Generic Name Dose Route Start Last Admin Trade Name Freq PRN Reason Stop Dose Admin Sodium Chloride 1,000 mls @ 1,000 mls/hr 12/27/16 12:00 12/27/16 12:02 Normal Saline IV 1,000 mls/hr ASDIRECTED OUMOU Administration Sodium Chloride 10 ml 12/27/16 11:42 12/27/16 11:59 Saline Flush FLUSH 10 ml ASDIRECTED PRN Administration Keep Vein Open Discontinued Medications Generic Name Dose Route Start Last Admin Trade Name Freq PRN Reason Stop Dose Admin Ondansetron HCl 4 mg 12/27/16 11:44 12/27/16 11:59 Zofran IVPUSH 12/27/16 11:45 4 mg ONETIME ONE Administration - Re-Assessments/Exams Free Text/Narrative Re-Assessment/Exam: 12/27/16 12:30 Lab work reviewed with patient and her mother, all questions answered. She is feeling better with less nausea. We will complete this liter of saline and add another depending on patient status. 12/27/16 13:00 Patient reports she feel much better, would like to go home. Departure - Departure Time of Disposition: 13:00 Disposition: Home, Self-Care 01 Condition: Good Clinical Impression: Nausea & vomiting, Gastritis - Discharge Information Instructions: Viral Gastroenteritis, Adult Referrals: Bhakti Marquez MD [Primary Care Provider] - Forms: ED Department Discharge Additional Instructions: You have been treated in the emergency room for nausea, vomiting, dehydration and gastritis You were given zofran 4 mg IV for nausea and normal saline IV for hydration. It is best for you to push oral fluids such as water, broth, and gatorade to stay hydrated. If you have not taken your omeprazole today, take it when you get home. Take ondansetron 4mg by mouth three times a day for nausea. Advance your diet as tolerated. Good foods to start with are applesauce, bananas, rice and toast. Take acetaminophen or ibuprofen for pain. Follow up with your primary provider later this week if you are not improving or have concerns. Return to the emergency room for worsening or issues. - My Orders Last 24 Hours: My Active Orders 12/27/16 11:42 Sodium Chloride 0.9% [Saline Flush] 10 ml FLUSH ASDIRECTED PRN Saline Lock Insert [OM.PC] Routine 12/27/16 12:00 Sodium Chloride 0.9% [Normal Saline] 1,000 ml IV ASDIRECTED - Assessment/Plan Last 24 Hours: My Active Orders 12/27/16 11:42 Sodium Chloride 0.9% [Saline Flush] 10 ml FLUSH ASDIRECTED PRN Saline Lock Insert [OM.PC] Routine 12/27/16 12:00 Sodium Chloride 0.9% [Normal Saline] 1,000 ml IV ASDIRECTED Assessment:: Nausea, vomiting, dehydration, gastritis Plan: Patient treated in the emergency room for nausea, vomiting, dehydration and gastritis She was given zofran 4 mg IV for nausea and normal saline IV for hydration. It is best for her to push oral fluids such as water, broth, and gatorade to stay hydrated. Take ondansetron 4mg by mouth three times a day for nausea. Advance diet as tolerated. Good foods to start with are applesauce, bananas, rice and toast. Take acetaminophen or ibuprofen for pain. Follow up with primary provider later this week if not improving or has concerns. Return to the emergency room for worsening or issues.
[2016-12-27] MEDS ORDERED: Sodium Chloride 0.9% 1,000 ML IV SCH (12:00)
== END 2016-12-27 13:05 | disposition home or self-care (01) ==
LOC: JP.ED 11:25
DX: K29.70 Gastritis, unspecified, without bleeding (principal); E86.0 Dehydration; K21.9 Gastro-esophageal reflux disease without esophagitis; J45.909 Unspecified asthma, uncomplicated; Z88.1 Allergy status to other antibiotic agents; Z79.899 Other long term (current) drug therapy
CPT/HCPCS: 36415; 80053; 81001; 81025; 85025; 96361; 96374; 99284; J2405; J7040; J7050

== ENCOUNTER 2017-07-06 20:19 | Emergency (ER) | payer BC ==
[2017-07-06 20:37] VITALS: BP 134/84
--- NOTE | 2017-07-06 21:15 | EDM.PDOC ---
ED HPI GENERAL MEDICAL PROBLEM - General Chief Complaint: General Stated Complaint: HEADACHE / COUGH Time Seen by Provider: 07/06/17 21:05 Source of Information: Reports: Patient, RN Notes Reviewed History Limitations: Reports: No Limitations - History of Present Illness INITIAL COMMENTS - FREE TEXT/NARRATIVE: 22-year-old female presents to the emergency department day complaint of cough and difficulty breathing, she states she's been ill for about 5 days has had fevers they now have resolved but continues to have cough with sputum production that is yellow does have a history of asthma and has run on of her inhaler Middle Chest Pain Score (Numeric/FACES): 6 - Related Data Allergies Allergy/AdvReac Type Severity Reaction Status Date / Time amoxicillin [From Augmentin] Allergy Vomiting Verified 12/27/16 11:32 cefixime [From Suprax] Allergy Rash Verified 09/22/16 21:50 clavulanic acid Allergy Vomiting Verified 12/27/16 11:32 [From Augmentin] Home Meds: Home Meds Albuterol [Ventolin HFA] 2 puff INH BID PRN 08/25/16 [History] Albuterol/Ipratropium [Combivent Respimat] 2 puff INH QID PRN 08/25/16 [History] Budesonide/Formoterol Fumarate [Symbicort 80-4.5 Mcg Inhaler] 1 puff IH DAILY [History] Montelukast [Singulair] 10 mg PO ONETIME 08/25/16 [History] Past Medical History Respiratory History: Reports: Asthma 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: Reports: GERD 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: Psychiatric History: Reports: Anxiety - Infectious Disease History Infectious Disease History: Reports: Chicken Pox Social & Family History - Family History Family Medical History: Noncontributory - Tobacco Use Smoking Status *Q: Never Smoker Second Hand Smoke Exposure: No - Caffeine Use Caffeine Use: Reports: Soda - Alcohol Use Days Per Week of Alcohol Use: 0 - Recreational Drug Use Recreational Drug Use: No - Living Situation & Occupation Living situation: Reports: with Family Occupation: Employed ED ROS GENERAL - Review of Systems Review Of Systems: See Below Constitutional: Reports: Fever, Chills HEENT: Reports: No Symptoms Respiratory: Reports: Shortness of Breath, Cough, Sputum. Denies: Wheezing Cardiovascular: Reports: No Symptoms GI/Abdominal: Reports: No Symptoms : Reports: No Symptoms Musculoskeletal: Reports: No Symptoms Skin: Reports: No Symptoms ED EXAM, GENERAL - Physical Exam Exam: See Below Exam Limited By: No Limitations General Appearance: Alert, WD/WN, No Apparent Distress Eye Exam: Bilateral Eye: Normal Inspection Ears: Normal External Exam, Normal Canal, Hearing Grossly Normal, Normal TMs Nose: Normal Inspection, Normal Mucosa, No Blood Throat/Mouth: Normal Inspection, Normal Lips, Normal Teeth, Normal Gums, Normal Oropharynx, Normal Voice, No Airway Compromise Head: Atraumatic, Normocephalic Neck: Normal Inspection, Supple, Non-Tender, Full Range of Motion Respiratory/Chest: No Respiratory Distress, Lungs Clear, Normal Breath Sounds, No Accessory Muscle Use Cardiovascular: Regular Rate, Rhythm, No Murmur GI/Abdominal: Soft, Non-Tender Course - Vital Signs Last Recorded V/S: Last Vital Signs Temp 99.2 F 07/06/17 20:36 Pulse 104 H 07/06/17 20:36 Resp 16 07/06/17 20:36 BP 134/84 07/06/17 20:36 Pulse Ox 97 07/06/17 20:36 Departure - Departure Time of Disposition: 21:14 Disposition: Home, Self-Care 01 Condition: Good Clinical Impression: Bronchitis - Discharge Information Referrals: Bhakti Marquez MD [Primary Care Provider] - Additional Instructions: Take full course of antibiotics, use your albuterol and had inhaler as needed for shortness of breath and cough, use Robitussin as needed help suppress the cough it will make you sleepy, Please followup with your primary care provider in 3-5 days if not better, please call return to the emergency department with worsening of symptoms. - Assessment/Plan Plan: Assessment Acuity = acute Site and laterality = bronchitis complicated patient known history of moderate persistent asthma Etiology = suspicious for bacterial cause Manifestations = cough Location of injury = Home Lab values = none Plan Did discuss options including x-ray and lab work she declined at this time elected to treat empirically azithromycin 5 day course, Robitussin-AC for the cough 10 mL every 4-6 hours when necessary and refilled her albuterol inhaler every 2 hours when necessary 2 puffs follow-up with primary care 3-5 days if not better This note was dictated using [employer] voice recognition software please call with any questions on syntax or qasim.
== END 2017-07-06 21:25 | disposition home or self-care (01) ==
LOC: JP.ED 20:19
DX: J40 Bronchitis, not specified as acute or chronic (principal); J45.909 Unspecified asthma, uncomplicated; Z88.1 Allergy status to other antibiotic agents; Z88.8 Allergy status to other drugs, medicaments and biological substances
CPT/HCPCS: 99284

== ENCOUNTER 2017-10-03 12:10 | Emergency (ER) | payer BC ==
[2017-10-03 12:46] VITALS: BP 131/79
--- NOTE | 2017-10-03 13:19 | EDM.PDOC ---
ED HPI GENERAL MEDICAL PROBLEM - General Chief Complaint: Upper Extremity Injury/Pain Stated Complaint: HURT RT ARM Time Seen by Provider: 10/03/17 13:15 Source of Information: Reports: Patient History Limitations: Reports: No Limitations - History of Present Illness INITIAL COMMENTS - FREE TEXT/NARRATIVE: 22-year-old female had a large board fall onto her right forearm 2 days ago. She 's having significant discomfort and feels like there is a "dent" in the middle of her forearm. Also some elbow discomfort. No significant bruising or swelling. Onset: Sudden (2 days ago) Location: Reports: Upper Extremity, Right Severity: Moderate Associated Symptoms: Reports: No Other Symptoms Right Lower Arm Pain Score (Numeric/FACES): 7 - Related Data Allergies Allergy/AdvReac Type Severity Reaction Status Date / Time amoxicillin [From Augmentin] Allergy Vomiting Verified 10/03/17 12:46 cefixime [From Suprax] Allergy Rash Verified 10/03/17 12:46 clavulanic acid Allergy Vomiting Verified 10/03/17 12:46 [From Augmentin] Home Meds: Home Meds Albuterol [Ventolin HFA] 2 puff INH BID PRN 08/25/16 [History] Albuterol/Ipratropium [Combivent Respimat] 2 puff INH QID PRN 08/25/16 [History] Budesonide/Formoterol Fumarate [Symbicort 80-4.5 Mcg Inhaler] 1 puff IH DAILY [History] Montelukast [Singulair] 10 mg PO ONETIME 08/25/16 [History] Albuterol/Ipratropium [DuoNeb 3.0-0.5 MG/3 ML] 1 ampule INH Q4H PRN 10/03/17 [ History] Past Medical History - Past Health History Medical/Surgical History: Denies Medical/Surgical History Respiratory History: Reports: Asthma 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: Reports: 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: Psychiatric History: Reports: Anxiety - Infectious Disease History Infectious Disease History: Reports: Chicken Pox Social & Family History - Family History Family Medical History: Noncontributory - Tobacco Use Smoking Status *Q: Never Smoker - Caffeine Use Caffeine Use: Reports: Soda - Recreational Drug Use Recreational Drug Use: No - Living Situation & Occupation Living situation: Reports: with Family Occupation: Employed Review of Systems - Review of Systems Review Of Systems: See Below Constitutional: Denies: Fever Respiratory: Reports: No Symptoms Cardiovascular: Reports: No Symptoms GI/Abdominal: Reports: No Symptoms Skin: Denies: Bruising Neurological: Denies: Paresthesia Psychiatric: Reports: No Symptoms ED EXAM, GENERAL - Physical Exam Exam: See Below Exam Limited By: No Limitations General Appearance: Alert, No Apparent Distress Respiratory/Chest: No Respiratory Distress Extremities: Other (Exam is otherwise limited to the right arm. She does have some tenderness over the radial aspect of the elbow into the middle of the forearm. There is no deformity or crepitus. The wrist is nontender) Course - Vital Signs Last Recorded V/S: Last Vital Signs Temp 97.5 F 10/03/17 12:43 Pulse 85 10/03/17 12:43 Resp 18 10/03/17 12:43 BP 131/79 10/03/17 12:43 Pulse Ox 100 10/03/17 12:43 - Orders/Labs/Meds Orders: Active Orders 24 hr Category Date Time Status Forearm 2V Rt [CR] Stat Exams 10/03/17 13:09 Taken - Re-Assessments/Exams Free Text/Narrative Re-Assessment/Exam: 10/03/17 13:19 A right forearm x-ray was obtained. 10/03/17 13:34 X-rays negative. Three-inch Wallace wrap was applied to the forearm, the patient should increase activity as tolerated. Departure - Departure Time of Disposition: 14:06 Disposition: Home, Self-Care 01 Condition: Good Clinical Impression: Contusion of arm, right Qualifiers: Encounter type: initial encounter Qualified Code(s): S40.021A - Contusion of right upper arm, initial encounter - Discharge Information Instructions: Contusion, [id number] Referrals: PCP,None [Primary Care Provider] - Forms: ED Department Discharge Care Plan Goals: Wear wrap for comfort, continue icing as needed and increase activity as tolerated. Ibuprofen or naproxen should help and recheck in 4-6 days if not improving satisfactorily. - My Orders Last 24 Hours: My Active Orders 10/03/17 13:09 Forearm 2V Rt [CR] Stat - Assessment/Plan Last 24 Hours: My Active Orders 10/03/17 13:09 Forearm 2V Rt [CR] Stat
--- NOTE | 2017-10-04 09:24 | CR ---
Forearm 2V Rt CLINICAL HISTORY: Pain, trauma FINDINGS: There is no acute fracture within the forearm. IMPRESSION: Negative right forearm.
== END 2017-10-03 14:06 | disposition home or self-care (01) ==
LOC: JP.ED 12:10
DX: S40.021A Contusion of right upper arm, initial encounter (principal); K21.9 Gastro-esophageal reflux disease without esophagitis; Z79.899 Other long term (current) drug therapy; Z88.1 Allergy status to other antibiotic agents; W20.8XXA Other cause of strike by thrown, projected or falling object, initial encounter
CPT/HCPCS: 73090-26-RT; 73090-RT; 99284

== ENCOUNTER 2017-11-11 11:57 | Emergency (ER) | payer BC ==
[2017-11-11 12:11] VITALS: BP 137/93
[2017-11-11] MEDS ORDERED: Sodium Chloride 0.9% 10 ML Syringe FLUSH PRN (12:34)
--- NOTE | 2017-11-11 12:37 | EDM.PDOC ---
ED HPI GENERAL MEDICAL PROBLEM - General Chief Complaint: General Stated Complaint: NO EATING OR DRINKING FOR FOUR DAYS/ LOSS 20LBS Time Seen by Provider: 11/11/17 12:23 Source of Information: Reports: Patient, Family, RN Notes Reviewed History Limitations: Reports: No Limitations - History of Present Illness INITIAL COMMENTS - FREE TEXT/NARRATIVE: 22-year-old female presents to the emergency department day complaint of abdominal pain she has had nausea for the last 4 days which made it difficult for her to eat has had about a 5 or 6 pound weight loss. When she does eat she gets abdominal pain epigastric region as well as the right lower quadrant. Denies any other symptoms past medical history of asthma and anxiety no abdominal surgeries - Related Data Allergies Allergy/AdvReac Type Severity Reaction Status Date / Time amoxicillin [From Augmentin] Allergy Vomiting Verified 10/03/17 12:46 cefixime [From Suprax] Allergy Rash Verified 10/03/17 12:46 clavulanic acid Allergy Vomiting Verified 10/03/17 12:46 [From Augmentin] Home Meds: Home Meds Albuterol [Ventolin HFA] 2 puff INH BID PRN 08/25/16 [History] Albuterol/Ipratropium [Combivent Respimat] 2 puff INH QID PRN 08/25/16 [History] Budesonide/Formoterol Fumarate [Symbicort 80-4.5 Mcg Inhaler] 1 puff IH DAILY [History] Montelukast [Singulair] 10 mg PO ONETIME 08/25/16 [History] Albuterol/Ipratropium [DuoNeb 3.0-0.5 MG/3 ML] 1 ampule INH Q4H PRN 10/03/17 [ History] Past Medical History Respiratory History: Reports: Asthma 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: Reports: GERD 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 Denies: Fever HEENT: Reports: No Symptoms Respiratory: Reports: No Symptoms Cardiovascular: Reports: No Symptoms GI/Abdominal: Reports: Abdominal Pain, Nausea. Denies: Constipation, Diarrhea, Vomiting : Reports: No Symptoms Musculoskeletal: Reports: No Symptoms Skin: Reports: No Symptoms Neurological: Reports: No Symptoms ED EXAM, GENERAL - Physical Exam Exam: See Below Free Text/Narrative:: General: Female, not in any distress, alert and oriented x3 HEENT: head is atraumatic normocephalic, eyes pupils equal round reactive to light, sclera clear no conjunctivitis appreciated. Ears tympanic membranes clear and [place] landmarks and light reflex are present bilaterally canals are clear. Nose no septal deviation, nares are clear, no blood present. Mouth mucosa is moist and pink no erythema or exudate noted in soft palate, tongue is midline uvula is midline, dentition is intact. Neck: Supple no thyromegaly no tracheal deviation. Nodes: Cervical nodes subclavicular nodes nontender no palpable lymphadenopathy noted. Lungs: clear to auscultation bilaterally with symmetrical respirations, no adventitious noise appreciated. CV: Regular rate and rhythm S1 and S2 appreciated no murmurs rubs or gallops noted. Abdomen: Soft, tender epigastric region and right lower quadrant, no palpable masses or organomegaly appreciated, no distention no guarding bowel sounds are present, . Neuro: Cranial nerves II through XII grossly intact Skin: Warm and dry, intact Extremities: No lower extremity edema appreciated, Course - Vital Signs Last Recorded V/S: Last Vital Signs Temp 98.6 F 11/11/17 12:10 Pulse 111 H 11/11/17 12:10 Resp 18 11/11/17 12:10 BP 137/93 H 11/11/17 12:10 Pulse Ox - Orders/Labs/Meds Orders: Active Orders 24 hr Category Date Time Status Peripheral IV Care [RC] . DIRECTED Care 11/11/17 12:34 Active HCG QUALITATIVE,URINE [URCHEM] Routine Lab 11/11/17 14:02 Ordered UA W/MICROSCOPIC [URIN] Urgent Lab 11/11/17 14:02 Ordered Iopamidol [Isovue-300 (61%)] Med 11/11/17 12:45 Active 100 ml IV . DIRECTED Lactated Ringers [Ringers, Lactated] 1,000 ml Med 11/11/17 12:45 Active IV ASDIRECTED Sodium Chloride 0.9% [Normal Saline] 100 ml Med 11/11/17 12:45 Active IV ASDIRECTED Sodium Chloride 0.9% [Saline Flush] Med 11/11/17 12:34 Active 10 ml FLUSH ASDIRECTED PRN Peripheral IV Insertion Adult [OM.PC] Urgent Oth 11/11/17 12:34 Ordered Medication Orders Lactated Ringer's (Ringers, Lactated) 1,000 mls @ 999 mls/hr IV ASDIRECTED OUMOU Last Admin: 11/11/17 12:48 Dose: 999 mls/hr Sodium Chloride (Normal Saline) 100 mls @ 3 mls/sec IV ASDIRECTED OUMOU Last Admin: 11/11/17 13:47 Dose: 3 mls/sec Iopamidol (Isovue-300 (61%)) 100 ml IV . DIRECTED OUMOU Last Admin: 11/11/17 13:47 Dose: 74 ml Sodium Chloride (Saline Flush) 10 ml FLUSH ASDIRECTED PRN PRN Reason: Keep Vein Open Last Admin: 11/11/17 12:46 Dose: 10 ml Labs: Laboratory Tests 11/11/17 11/11/17 11/11/17 Range/Units 12:34 12:34 12:34 WBC 7.9 (4.5-11.0) K/uL RBC 4.71 (3.30-5.50) M/uL Hgb 12.4 (12.0-15.0) g/dL Hct 36.6 (36.0-48.0) % MCV 78 L (80-98) fL MCH 26 L (27-31) pg MCHC 34 (32-36) % Plt Count 361 (150-400) K/uL Neut % (Auto) 73 H (36-66) % Lymph % (Auto) 22 L (24-44) % [place] % (Auto) 4 (2-6) % Eos % (Auto) 1 L (2-4) % Baso % (Auto) 1 (0-1) % Sodium (140-148) mmol/L Potassium (3.6-5.2) mmol/L Chloride (100-108) mmol/L Carbon Dioxide (21-32) mmol/L Anion Gap (5.0-14.0) mmol/L BUN (7-18) mg/dL Creatinine (0.6-1.0) mg/dL Est Cr Clr Drug Dosing mL/min Estimated GFR (MDRD) (>60) BUN/Creatinine Ratio Glucose (74-106) mg/dL Lactic Acid 0.8 (0.7-2.1) mmol/L Calcium (8.5-10.1) mg/dL Total Bilirubin (0.2-1.0) mg/dL AST (15-37) U/L ALT (12-78) U/L Alkaline Phosphatase (46-116) U/L Total Protein (6.4-8.2) g/dL Albumin (3.4-5.0) g/dL Globulin (2.3-3.5) g/dL Albumin/Globulin Ratio (1.2-2.2) Lipase (73-393) U/L Urine Color Urine Appearance Urine pH (4.5-8.0) Ur Specific [place] (1.008-1.030) Urine Protein (NEGATIVE) mg/dL Urine Glucose (UA) (NEGATIVE) mg/dL Urine Ketones (NEGATIVE) mg/dL Urine Occult Blood (NEGATIVE) Urine Nitrite (NEGATIVE) Urine Bilirubin (NEGATIVE) Urine Urobilinogen (NORMAL) mg/dL Ur Leukocyte Esterase (NEGATIVE) Urine RBC (0-5) Urine WBC (0-5) Ur Epithelial Cells Amorphous Sediment Urine Bacteria Urine Mucus Urine HCG, Qual 18 11/11/17 Range/Units 14:02 14:02 WBC (4.5-11.0) K/uL RBC (3.30-5.50) M/uL Hgb (12.0-15.0) g/dL Hct (36.0-48.0) % MCV (80-98) fL MCH (27-31) pg MCHC (32-36) % Plt Count (150-400) K/uL Neut % (Auto) (36-66) % Lymph % (Auto) (24-44) % [place] % (Auto) (2-6) % Eos % (Auto) (2-4) % Baso % (Auto) (0-1) % Sodium (140-148) mmol/L Potassium (3.6-5.2) mmol/L Chloride (100-108) mmol/L Carbon Dioxide (21-32) mmol/L Anion Gap (5.0-14.0) mmol/L BUN (7-18) mg/dL Creatinine (0.6-1.0) mg/dL Est Cr Clr Drug Dosing mL/min Estimated GFR (MDRD) (>60) BUN/Creatinine Ratio Glucose (74-106) mg/dL Lactic Acid (0.7-2.1) mmol/L Calcium (8.5-10.1) mg/dL Total Bilirubin (0.2-1.0) mg/dL AST (15-37) U/L ALT (12-78) U/L Alkaline Phosphatase (46-116) U/L Total Protein (6.4-8.2) g/dL Albumin (3.4-5.0) g/dL Globulin (2.3-3.5) g/dL Albumin/Globulin Ratio (1.2-2.2) Lipase (73-393) U/L Urine Color Yellow Urine Appearance Slightly cloudy Urine pH 5.0 (4.5-8.0) Ur Specific [place] 1.015 (1.008-1.030) Urine Protein 100 H (NEGATIVE) mg/dL Urine Glucose (UA) 50 H (NEGATIVE) mg/dL Urine Ketones Negative (NEGATIVE) mg/dL Urine Occult Blood Large (NEGATIVE) Urine Nitrite Negative (NEGATIVE) Urine Bilirubin Negative (NEGATIVE) Urine Urobilinogen Normal (NORMAL) mg/dL Ur Leukocyte Esterase Negative (NEGATIVE) Urine RBC 10-20 H (0-5) Urine WBC 0-5 (0-5) Ur Epithelial Cells Many Amorphous Sediment Few Urine Bacteria Not seen Urine Mucus Not seen Urine HCG, Qual Negative Meds: Medications Generic Name Dose Route Start Last Admin Trade Name Freq PRN Reason Stop Dose Admin Lactated Ringer's 1,000 mls @ 999 mls/hr 11/11/17 12:45 11/11/17 12:48 Ringers, Lactated IV 999 mls/hr ASDIRECTED OUMOU Administration Sodium Chloride 100 mls @ 3 mls/sec 11/11/17 12:45 11/11/17 13:47 Normal Saline IV 3 mls/sec ASDIRECTED OUMOU Administration Iopamidol 100 ml 11/11/17 12:45 11/11/17 13:47 Isovue-300 (61%) IV 74 ml . DIRECTED OUMOU Administration Sodium Chloride 10 ml 11/11/17 12:34 11/11/17 12:46 Saline Flush FLUSH 10 ml ASDIRECTED PRN Administration Keep Vein Open Departure - Departure Time of Disposition: 14:35 Disposition: Home, Self-Care 01 Condition: Fair Clinical Impression: Abdominal pain Qualifiers: Abdominal location: epigastric Qualified Code(s): R10.13 - Epigastric pain - Discharge Information Referrals: PCP,None [Primary Care Provider] - Forms: ED Department Discharge Additional Instructions: use Zofran as needed to help control nausea and vomiting symptoms, try Zantac for epigastric abdominal pain, Please followup with your primary care provider in 3-5 days if not better, please call return to the emergency department with worsening of symptoms. - My Orders Last 24 Hours: My Active Orders 11/11/17 12:34 Peripheral IV Care [RC] . DIRECTED Sodium Chloride 0.9% [Saline Flush] 10 ml FLUSH ASDIRECTED PRN Peripheral IV Insertion Adult [OM.PC] Urgent 11/11/17 12:45 Iopamidol [Isovue-300 (61%)] 100 ml IV . DIRECTED Lactated Ringers [Ringers, Lactated] 1,000 ml IV ASDIRECTED Sodium Chloride 0.9% [Normal Saline] 100 ml IV ASDIRECTED 11/11/17 14:02 HCG QUALITATIVE,URINE [URCHEM] Routine UA W/MICROSCOPIC [URIN] Urgent - Assessment/Plan Last 24 Hours: My Active Orders 11/11/17 12:34 Peripheral IV Care [RC] . DIRECTED Sodium Chloride 0.9% [Saline Flush] 10 ml FLUSH ASDIRECTED PRN Peripheral IV Insertion Adult [OM.PC] Urgent 11/11/17 12:45 Iopamidol [Isovue-300 (61%)] 100 ml IV . DIRECTED Lactated Ringers [Ringers, Lactated] 1,000 ml IV ASDIRECTED Sodium Chloride 0.9% [Normal Saline] 100 ml IV ASDIRECTED 11/11/17 14:02 HCG QUALITATIVE,URINE [URCHEM] Routine UA W/MICROSCOPIC [URIN] Urgent Plan: Assessment Acuity = acute Site and laterality = abdominal pain Etiology = unclear etiology Manifestations = nausea and vomiting Location of injury = Home Lab values = CBC, CMP, urinalysis, beta hCG all negative, CT scan shows no acute process Plan She had some relief with Zofran provided should be discharged home with Zofran 4 mg ODT 1 tab by mouth every 8 hours when necessary total #10 follow-up primary care in 3-5 days for reevaluation This note was dictated using etouches voice recognition software please call with any questions on syntax or grammar.
[2017-11-11] MEDS ORDERED: Lactated Ringers 1,000 ML IV SCH (12:45)
[2017-11-11] MEDS ORDERED: Iopamidol 612 MG/ML 100 ML Bottle IV SCH (12:45)
[2017-11-11] MEDS ORDERED: Sodium Chloride 0.9% 100 ML IV SCH (12:45)
--- NOTE | 2017-11-11 14:15 | CT ---
Abdomen Pelvis w Cont CLINICAL HISTORY: Right lower quadrant pain COMPARISON: 09/02/2016. TECHNIQUE: Axial tomographic images are obtained from the dome of the diaphragm to the pubic symphysi s without IV contrast enhancement. No oral contrast was used. Auto dosage reduction and iterative rec onstruction techniques employed. FINDINGS: The lung bases are clear. The liver shows no mass or biliary dilatation. The gallbladder is not fully distended. There is some mild wall prominence.. The spleen has a normal size and shape. Th e pancreas shows no mass or inflammatory change. The adrenal glands appear normal bilaterally. The ki dneys show no mass, stones or hydronephrosis. The aorta has a normal contour. There is no suspicious retroperitoneal adenopathy. There is a positive intra-abdominal fat. That planes appear fairly well-preserved. The appendix has a normal contour. The the uterus is midline. The no adnexal masses are identified. The bladder has a n ormal contour. IMPRESSION: No mass, adenopathy or inflammatory change
== END 2017-11-11 14:47 | disposition home or self-care (01) ==
LOC: JP.ED 11:57
DX: R10.13 Epigastric pain (principal); J45.909 Unspecified asthma, uncomplicated; K21.9 Gastro-esophageal reflux disease without esophagitis; Z88.1 Allergy status to other antibiotic agents; Z88.8 Allergy status to other drugs, medicaments and biological substances
CPT/HCPCS: 36415; 74177; 80053; 81001; 81025; 83605; 83690; 85025; 96360; 99284; J7030; J7050; J7120; Q9967

== ENCOUNTER 2018-09-28 17:32 | Emergency (ER) | payer BC, MEDICAID, OTHER ==
--- NOTE | 2018-09-28 18:35 | EDM.PDOC ---
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 She is 17 weeks . She did have a Us in [place] about 2 weeks ago. She was told she had a subchorionic bleed. She has not been spotting or having any unusal dischrge. She has been feeling activity on the baby. Onset: Gradual, Other ( This has been going on for about 5 days. ) Duration: Hour(s): Location: Reports: Abdomen Associated Symptoms: Reports: Other ( cramping in the abdoman. ) Pelvic Pain Score (Numeric/FACES): 5 - Related Data Allergies Allergy/AdvReac Type Severity Reaction Status Date / Time amoxicillin [From Augmentin] Allergy Vomiting Verified 09/28/18 18:11 cefixime [From Suprax] Allergy Rash Verified 09/28/18 18:11 clavulanic acid Allergy Vomiting Verified 09/28/18 18:11 [From Augmentin] Home Meds: Home Meds Albuterol [Ventolin HFA] 2 puff INH BID PRN 08/25/16 [History] Albuterol/Ipratropium [Combivent Respimat] 2 puff INH QID PRN 08/25/16 [History] Budesonide/Formoterol Fumarate [Symbicort 80-4.5 Mcg Inhaler] 1 puff IH DAILY [History] Montelukast [Singulair] 10 mg PO ONETIME 08/25/16 [History] Albuterol/Ipratropium [DuoNeb 3.0-0.5 MG/3 ML] 1 ampule INH Q4H PRN 10/03/17 [ History] Fluticasone/Vilanterol [Breo Ellipta 200-25 Mcg INH] 1 dose PO ASDIRECTED [History] Vit37/Iron/Folic Acid [[place]] 1 each PO DAILY 09/28/18 [History] Past Medical History - Past Health History Medical/Surgical History: Denies Medical/Surgical History Respiratory History: Reports: Asthma 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: Reports: GERD 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: 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 p-1 Psychiatric History: Reports: Anxiety - Infectious Disease History Infectious Disease History: Reports: Chicken Pox Social & Family History - Family History Family Medical History: Noncontributory - Tobacco Use Smoking Status *Q: Never Smoker - Caffeine Use Caffeine Use: Reports: Soda - Recreational Drug Use Recreational Drug Use: No - Living Situation & Occupation Living situation: Reports: with Family Occupation: Employed ED ROS GENERAL - Review of Systems Review Of Systems: See Below Constitutional: Reports: No Symptoms HEENT: Reports: No Symptoms Respiratory: Reports: No Symptoms Cardiovascular: Reports: No Symptoms Endocrine: Reports: No Symptoms GI/Abdominal: Reports: Abdominal Pain, Other ( crampy pain in the left lower abdoman. ) : Reports: No Symptoms Musculoskeletal: Reports: No Symptoms Skin: Reports: No Symptoms Neurological: Reports: No Symptoms Psychiatric: Reports: Anxiety ED EXAM - Physical Exam Exam: See Below Text/Narrative:: pt arrived with pain in lower abdoman. This was more on the left than the rt. Exam Limited By: No Limitations General Appearance: Alert, Anxious, Moderate Distress Ears: Normal TMs Nose: Normal Inspection Throat/Mouth: Normal Inspection Head: Atraumatic Neck: Normal Inspection Respiratory/Chest: No Respiratory Distress Cardiovascular: Regular Rate, Rhythm GI/Abdominal Exam: Other ( tender n the left lower abdoman. She is feeling alot of pressure. ) (Female) Exam: Other ( When she voids it does hurt more up in her abdoman. ) Neurological: Alert, Oriented, Normal Cognition Course - Vital Signs Last Recorded V/S: Last Vital Signs Temp 36.4 C 09/28/18 18:08 Pulse 77 09/28/18 18:08 Resp 16 09/28/18 18:08 BP 114/73 09/28/18 18:08 Pulse Ox 99 09/28/18 18:08 - Orders/Labs/Meds Orders: Active Orders 24 hr Category Date Time Status CULTURE URINE [RM] Stat Lab 09/28/18 19:11 Received Labs: Laboratory Tests 09/28/18 09/28/18 09/28/18 Range/Units 18:29 18:29 18:54 WBC 9.9 (4.5-11.0) K/uL RBC 3.90 (3.30-5.50) M/uL Hgb 11.0 L (12.0-15.0) g/dL Hct 32.8 L (36.0-48.0) % MCV 84 (80-98) fL MCH 28 (27-31) pg MCHC 34 (32-36) % Plt Count 304 (150-400) K/uL Neut % (Auto) 65 (36-66) % Lymph % (Auto) 27 (24-44) % [place] % (Auto) 5 (2-6) % Eos % (Auto) 2 (2-4) % Baso % (Auto) 0 (0-1) % Sodium 138 L (140-148) mmol/L Potassium 3.7 (3.6-5.2) mmol/L Chloride 103 (100-108) mmol/L Carbon Dioxide 27 (21-32) mmol/L Anion Gap 11.7 (5.0-14.0) mmol/L BUN 9 (7-18) mg/dL Creatinine 0.6 (0.6-1.0) mg/dL Est Cr Clr Drug Dosing 116.32 mL/min Estimated GFR (MDRD) > 60 (>60) Glucose 84 (74-106) mg/dL Calcium 8.4 L (8.5-10.1) mg/dL Total Bilirubin 0.2 D (0.2-1.0) mg/dL AST 13 L (15-37) U/L ALT 17 (12-78) U/L Alkaline Phosphatase 49 (46-116) U/L Total Protein 6.4 (6.4-8.2) g/dL Albumin 3.0 L (3.4-5.0) g/dL Globulin 3.4 (2.3-3.5) g/dL Albumin/Globulin Ratio 0.9 L (1.2-2.2) Urine Color Yellow Urine Appearance Cloudy Urine pH 5.0 (4.5-8.0) Ur Specific [place] 1.015 (1.008-1.030) Urine Protein Trace (NEGATIVE) mg/dL Urine Glucose (UA) 100 H (NEGATIVE) mg/dL Urine Ketones Negative (NEGATIVE) mg/dL Urine Occult Blood Large (NEGATIVE) Urine Nitrite Negative (NEGATIVE) Urine Bilirubin Negative (NEGATIVE) Urine Urobilinogen Normal (NORMAL) mg/dL Ur Leukocyte Esterase Large (NEGATIVE) Urine RBC 10-20 H (0-5) Urine WBC 0-5 (0-5) Ur Epithelial Cells Moderate Amorphous Sediment Few Urine Bacteria Few Urine Mucus Moderate - Re-Assessments/Exams Free Text/Narrative Re-Assessment/Exam: 09/28/18 21:07 urine has alot of wbcs nd some bacteria this was cultured. She had a US which shows good growth of the baby, baby is active. The placenta sits very low. She will be reevaluated for a previa at 20 weeks. She has a very irritable uterus which may be causing her cramping. Departure - Departure Time of Disposition: 21:09 Disposition: Home, Self-Care 01 Condition: Fair Clinical Impression: UTI (urinary tract infection), Irritable uterus, Placenta previa centralis in first trimester - Discharge Information Referrals: Bhakti Marquez MD [Primary Care Provider] - Forms: ED Department Discharge Care Plan Goals: keep appt for the Us at 20 weeks to assess the placenta, push fluids, get an appt with regular provider. Send copies of US to go with Pt. will notify of the Urine culture. - My Orders Last 24 Hours: My Active Orders 09/28/18 19:11 CULTURE URINE [RM] Stat - Assessment/Plan Last 24 Hours: My Active Orders 09/28/18 19:11 CULTURE URINE [RM] Stat
[2018-09-28 18:37] VITALS: BP 114/73; PULSE 77
--- NOTE | 2018-09-28 20:39 | CRLUS ---
HISTORY: Cramping in lower abdominal discomfort. COMPARISON: None available of this gestation. TECHNIQUE: Ultrasound examination of the is performed with transabdominal technique. FINDINGS: A single intrauterine gestation is seen in cephalic presentation with regular cardiac activity at 147 beats per minute. The placenta is posterior and is free of the cervical os. The placental margin is low, located 2.7 centimeters from the internal os. However, it is certainly greater than 2.0 centimeters and is thus knots suspicious for a marginal placenta. The placental grade is I and the amniotic fluid volume is normal. There is no sign of cervical dilatation. Cervical length is normal at 3.8 centimeters. The SG is normal, measuring 10.6 cm. Single deepest vertical pocket: 3.1 cm. IMPRESSION: Single intrauterine gestation in cephalic presentation with regular cardiac activity. DVP is normal at 3.1 centimeters. Normal cervical length of 3.8 centimeters. Dictated by Kole Olson MD @ Sep 28 2018 8:31PM Signed by Dr. Kole Olson @ Sep 28 2018 8:39PM
== END 2018-09-28 21:36 | disposition home or self-care (01) ==
LOC: JP.ED 17:32
DX: O44.02 Complete placenta previa NOS or without hemorrhage, second trimester (principal); O23.42 Unspecified infection of urinary tract in pregnancy, second trimester; O34.592 Maternal care for other abnormalities of gravid uterus, second trimester; O99.342 Other mental disorders complicating pregnancy, second trimester; F41.9 Anxiety disorder, unspecified; O99.512 Diseases of the respiratory system complicating pregnancy, second trimester; J45.909 Unspecified asthma, uncomplicated; Z88.1 Allergy status to other antibiotic agents; Z79.899 Other long term (current) drug therapy; Z3A.17 17 weeks gestation of pregnancy
CPT/HCPCS: 36415; 76815; 80053; 81001; 85025; 87086; 99284-25

== ENCOUNTER 2019-07-16 17:27 | Emergency (ER) | payer MEDICAID ==
[2019-07-16 17:39] VITALS: BP 146/102; PULSE 94
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
--- NOTE | 2019-07-16 18:32 | CRLCT ---
INDICATION: Head injury. Vomiting. Loss of consciousness COMPARISON: None TECHNIQUE: CT examination of the head was performed as axial sections without intravenous contrast. Images were obtained from the vertex of the skull through the skull base. Please note that all CT scans at this facility use dose modulation, iterative reconstruction, and/or weight-based dosing when appropriate to reduce radiation dose to as low as reasonably achievable. FINDINGS: The brain shows no sign of mass lesion, mass effect, hemorrhage, or edema. The ventricles and sulci are normal in appearance for the patient`s age. The visualized portions of the orbits are normal in appearance. The osseous structures are normal in their appearance with no sign of abnormality in the skull base or calvarium. IMPRESSION: Normal unenhanced head CT. Please note that all CT scans at this facility use dose modulation, iterative reconstruction, and/or weight-based dosing when appropriate to reduce radiation dose to as low as reasonably achievable. Dictated by George Armando MD @ Jul 16 2019 6:28PM Signed by Dr. George Armando @ Jul 16 2019 6:30PM
== END 2019-07-16 18:30 | disposition home or self-care (01) ==
LOC: JP.ED 17:27
DX: S06.0X9A Concussion with loss of consciousness of unspecified duration, initial encounter (principal); Z88.1 Allergy status to other antibiotic agents; J45.909 Unspecified asthma, uncomplicated; W22.8XXA Striking against or struck by other objects, initial encounter
CPT/HCPCS: 70450; 99284-25

== ENCOUNTER 2020-04-03 17:58 | Emergency (ER) | payer MEDICAID ==
[2020-04-03 18:38] VITALS: BP 144/98; PULSE 95
--- NOTE | 2020-04-03 18:45 | EDM.PDOC ---
ED HPI GENERAL MEDICAL PROBLEM - General Chief Complaint: Cardiovascular Problem Stated Complaint: HIGH BLOOD PRESSURE Time Seen by Provider: 04/03/20 18:40 Source of Information: Reports: Patient, RN Notes Reviewed History Limitations: Reports: No Limitations - History of Present Illness INITIAL COMMENTS - FREE TEXT/NARRATIVE: 25-year-old female presents emergency department a complaint of high blood pressure and anxiety, states she had problems with anxiety for some time has been on Effexor in the past is not sure if her anxiety influences her high blood pressure. She is checking her blood pressure at home with a wrist cuff denies any chest pain shortness of breath nausea or vomiting - Related Data Allergies Allergy/AdvReac Type Severity Reaction Status Date / Time amoxicillin [From Augmentin] Allergy Vomiting Verified 09/28/18 18:11 cefixime [From Suprax] Allergy Rash Verified 09/28/18 18:11 clavulanic acid Allergy Vomiting Verified 09/28/18 18:11 [From Augmentin] Home Meds: Home Meds Albuterol [Ventolin HFA] 2 puff INH BID PRN 08/25/16 [History] Albuterol/Ipratropium [Combivent Respimat] 2 puff INH QID PRN 08/25/16 [History] Budesonide/Formoterol Fumarate [Symbicort 80-4.5 Mcg Inhaler] 1 puff IH DAILY 08/25/16 [History] Montelukast [Singulair] 10 mg PO ONETIME 08/25/16 [History] Albuterol/Ipratropium [DuoNeb 3.0-0.5 MG/3 ML] 1 ampule INH Q4H PRN 10/03/17 [History] Fluticasone/Vilanterol [Breo Ellipta 200-25 Mcg INH] 1 dose PO ASDIRECTED 03/01/18 [History] Venlafaxine [Effexor XR] 37.5 mg PO DAILY #30 cap.er 04/03/20 [Rx] Past Medical History Respiratory History: Reports: Asthma 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: Reports: GERD 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 Psychiatric History: Reports: Anxiety - Infectious Disease History Infectious Disease History: Reports: Chicken Pox Social & Family History - Family History Family Medical History: No Pertinent Family History - Caffeine Use Caffeine Use: Reports: Soda - Recreational Drug Use Recreational Drug Use: No - Living Situation & Occupation Living situation: Reports: with Family Occupation: Employed ED ROS GENERAL - Review of Systems Review Of Systems: See Below Constitutional: Reports: No Symptoms HEENT: Reports: No Symptoms Respiratory: Reports: No Symptoms Cardiovascular: Reports: Blood Pressure Problem GI/Abdominal: Reports: No Symptoms Psychiatric: Reports: Anxiety ED EXAM, GENERAL - Physical Exam Exam: See Below Exam Limited By: No Limitations General Appearance: Alert, WD/WN, No Apparent Distress Eye Exam: Bilateral Eye: Normal Inspection Respiratory/Chest: No Respiratory Distress, Lungs Clear, Normal Breath Sounds, No Accessory Muscle Use, Chest Non-Tender Cardiovascular: Regular Rate, Rhythm, No Murmur Course - Vital Signs Last Recorded V/S: Last Vital Signs Temp 98.4 F 04/03/20 18:18 Pulse 95 04/03/20 18:18 Resp 16 04/03/20 18:18 BP 144/98 H 04/03/20 18:18 Pulse Ox 99 04/03/20 18:18 Departure - Departure Time of Disposition: 18:44 Disposition: Home, Self-Care 01 Condition: Fair Clinical Impression: Anxiety Prescriptions: Venlafaxine [Effexor XR] 37.5 mg PO DAILY #30 cap.er Instructions: Managing Anxiety, Adult Referrals: Bhakti Marquez MD [Primary Care Provider] - Additional Instructions: "Start the Effexor tomorrow take 1 tablet daily this medication may be increased to 75 mg daily after about 10 days time, please follow-up with your primary care in 10 to 15 days for reevaluation, your medications have been faxed to [facility], call return to the emergency department worsening of symptoms Sepsis Event Note (ED) - Evaluation Sepsis Screening Result: No Definite Risk - Focused Exam Vital Signs: Vital Signs Temp Pulse Resp BP Pulse Ox 04/03/20 18:18 98.4 F 95 16 144/98 H 99 - Assessment/Plan Plan: Assessment Acuity = acute Site and laterality = generalized anxiety disorder Etiology = unknown Manifestations = none Location of injury = Home Lab values = none Plan She has been on Effexor in the past which worked well for her would restart that medication started 37.5 mg once daily she is can follow-up with her primary care in 10 to 15 days for reevaluation medications faxed to [facility] This note was dictated using [employer] voice recognition software please call with any questions on syntax or grammar.
== END 2020-04-03 18:58 | disposition home or self-care (01) ==
LOC: JP.ED 17:58
DX: F41.9 Anxiety disorder, unspecified (principal); J45.909 Unspecified asthma, uncomplicated; Z88.0 Allergy status to penicillin; Z88.1 Allergy status to other antibiotic agents; Z79.899 Other long term (current) drug therapy
CPT/HCPCS: 99283

== ENCOUNTER 2020-05-26 21:42 | Emergency (ER) | payer MEDICAID ==
[2020-05-26 21:54] VITALS: BP 143/108; PULSE 83
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
--- NOTE | 2020-05-27 12:26 | CR ---
Forearm 2V Rt, CLINICAL HISTORY: Pain and swelling FINDINGS: No fracture or osseous lesion is identified IMPRESSION: Negative Elbow Min 3V Rt, CLINICAL HISTORY: Pain and swelling FINDINGS: No fracture or dislocation is identified. Articular surfaces are smooth. Fat pads are in normal position IMPRESSION: Negative Humerus Rt CLINICAL HISTORY: Pain and swelling FINDINGS: No fracture or osseous lesion is seen IMPRESSION: Negative
== END 2020-05-26 22:45 | disposition home or self-care (01) ==
LOC: JP.ED 21:42
DX: S47.1XXA Crushing injury of right shoulder and upper arm, initial encounter (principal); J45.909 Unspecified asthma, uncomplicated; Z88.0 Allergy status to penicillin; Z88.1 Allergy status to other antibiotic agents; Z79.899 Other long term (current) drug therapy; W23.0XXA Caught, crushed, jammed, or pinched between moving objects, initial encounter
CPT/HCPCS: 73060-26-RT; 73060-RT; 73080-26-RT; 73080-RT; 73090-26-RT; 73090-RT; 99282; 99283-25

== ENCOUNTER 2020-07-17 21:46 | Emergency (ER) | payer MEDICAID ==
--- NOTE | 2020-07-17 21:59 | EDM.PDOC ---
ED HPI GENERAL MEDICAL PROBLEM - General Chief Complaint: Genitourinary Problem Stated Complaint: UTI?/FEVER Time Seen by Provider: 07/17/20 21:57 Source of Information: Reports: Patient History Limitations: Reports: No Limitations - History of Present Illness INITIAL COMMENTS - FREE TEXT/NARRATIVE: Nancie is a 25-year-old female presenting to the ED for evaluation of painful ur ination, fever and chills, body aches and abdominal pain. Patient reports her symptoms started approximately a week ago and have been worsening. Patient was seen by me on 07/07/2020 for Covid symptoms and was found to have acute gastroenteritis. In addition to the symptoms as mentioned above, the patient also is complaining of migraine type headache for the last week. She is prone to migraine type headaches. lower back Pain Score (Numeric/FACES): 7 - Related Data Allergies Allergy/AdvReac Type Severity Reaction Status Date / Time amoxicillin [From Augmentin] Allergy Vomiting Verified 07/17/20 22:08 cefixime [From Suprax] Allergy Rash Verified 07/17/20 22:08 clavulanic acid Allergy Vomiting Verified 07/17/20 22:08 [From Augmentin] Home Meds: Home Meds Albuterol [Ventolin HFA] 2 puff INH BID PRN 08/25/16 [History] Albuterol/Ipratropium [Combivent Respimat] 2 puff INH QID PRN 08/25/16 [History] Budesonide/Formoterol Fumarate [Symbicort 80-4.5 Mcg Inhaler] 1 puff IH DAILY 08/25/16 [History] Albuterol/Ipratropium [DuoNeb 3.0-0.5 MG/3 ML] 1 ampule INH Q4H PRN 10/03/17 [History] Fluticasone/Vilanterol [Breo Ellipta 200-25 Mcg INH] 1 dose PO ASDIRECTED 03/01/18 [History] Past Medical History - Past Health History Medical/Surgical History: Denies Medical/Surgical History Respiratory History: Reports: Asthma 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: Reports: GERD 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 SOCIETY DIRECTOR History: G-2 p-1 Neurological History: Reports: Concussion, Migraines Psychiatric History: Reports: Anxiety - Infectious Disease History Infectious Disease History: Reports: Chicken Pox, Novel Coronavirus Social & Family History - Family History Family Medical History: No Pertinent Family History - Caffeine Use Caffeine Use: Reports: Soda - Living Situation & Occupation Living situation: Reports: with Family Occupation: Employed ED ROS GENERAL - Review of Systems Review Of Systems: See Below Constitutional: Reports: Fever, Chills, Malaise HEENT: Reports: No Symptoms Respiratory: Reports: No Symptoms Cardiovascular: Reports: No Symptoms Endocrine: Reports: No Symptoms GI/Abdominal: Reports: Nausea : Reports: Dysuria, Frequency, Pain, Urgency Musculoskeletal: Reports: Back Pain (Low back pain), Muscle Pain Neurological: Reports: Headache Psychiatric: Reports: No Symptoms Hematologic/Lymphatic: Reports: No Symptoms Immunologic: Reports: No Symptoms ED EXAM, RENAL/ - Physical Exam Exam: See Below Exam Limited By: No Limitations General Appearance: Alert, No Apparent Distress Eye Exam: Bilateral Eye: EOMI, PERRL Throat/Mouth: Normal Inspection, Normal Voice, No Airway Compromise Head: Atraumatic, Normocephalic Neck: Normal Inspection, Supple. No: Lymphadenopathy (R), Lymphadenopathy (L) Respiratory/Chest: No Respiratory Distress, Lungs Clear, Normal Breath Sounds Cardiovascular: Normal Peripheral Pulses, Regular Rate, Rhythm, No Edema, No Murmur GI/Abdominal: Normal Bowel Sounds, Soft, Non-Tender Back Exam: Paraspinal Tenderness (Lumbar spine bilaterally patient was manipulated by a chiropractor earlier today.). No: CVA Tenderness (R), CVA Tenderness (L) Extremities: Normal Inspection, Normal Range of Motion Neurological: Alert, Oriented, Normal Cognition, No Motor/Sensory Deficits Psychiatric: Normal Affect, Normal Mood Skin Exam: Warm, Dry Lymphatic: No Adenopathy Course - Vital Signs Last Recorded V/S: Last Vital Signs Temp 38.2 C H 07/17/20 22:12 Pulse 120 H 07/17/20 22:12 Resp 15 07/17/20 22:12 BP 142/87 H 07/17/20 22:12 Pulse Ox 99 07/17/20 22:12 - Orders/Labs/Meds Orders: Active Orders 24 hr Category Date Time Status Sodium Chloride 0.9% [Saline Flush] Med 07/17/20 22:09 Active 10 ml FLUSH ASDIRECTED PRN Saline Lock Insert [OM.PC] Routine Oth 07/17/20 22:09 Ordered Medication Orders Sodium Chloride (Sodium Chloride 0.9% 10 Ml Syringe) 10 ml FLUSH ASDIRECTED PRN PRN Reason: Keep Vein Open Last Admin: 07/17/20 22:46 Dose: 10 ml Documented by: CHRISTIANO Labs: Laboratory Tests 07/17/20 Range/Units 22:09 Urine Color Yellow (YELLOW) Urine Appearance Slightly cloudy A (CLEAR) Urine pH 6.0 (5.0-8.0) Ur Specific [place] 1.015 (1.008-1.030) Urine Protein 100 H (NEGATIVE) mg/dL Urine Glucose (UA) Negative (NEGATIVE) mg/dL Urine Ketones Negative (NEGATIVE) mg/dL Urine Occult Blood Large H (NEGATIVE) Urine Nitrite Negative (NEGATIVE) Urine Bilirubin Negative (NEGATIVE) Urine Urobilinogen 0.2 (0.2-1.0) EU/dL Ur Leukocyte Esterase Small H (NEGATIVE) Urine RBC 10-20 H (0-5) Urine WBC 30-40 H (0-5) Ur Epithelial Cells Few Amorphous Sediment Not seen Urine Bacteria Many Urine Mucus Not seen Meds: Medications Generic Name Dose Route Start Last Admin Trade Name Tereso PRN Reason Stop Dose Admin Sodium Chloride 10 ml 07/17/20 22:09 07/17/20 22:46 Sodium Chloride 0.9% 10 Ml Syringe FLUSH 10 ml ASDIRECTED PRN Administration Keep Vein Open Discontinued Medications Generic Name Dose Route Start Last Admin Trade Name Tereso PRN Reason Stop Dose Admin Dexamethasone 10 mg 07/17/20 22:09 07/17/20 22:46 Dexamethasone 4 Mg/Ml Sdv IVPUSH 07/17/20 22:10 10 mg ONETIME ONE Administration Diphenhydramine HCl 50 mg 07/17/20 22:09 07/17/20 22:37 Diphenhydramine 50 Mg/Ml Sdv IVPUSH 07/17/20 22:10 50 mg ONETIME ONE Administration Sodium Chloride 1,000 mls @ 999 mls/hr 07/17/20 22:09 07/17/20 22:35 Normal Saline IV 07/17/20 23:09 999 mls/hr .BOLUS ONE Administration Ketorolac Tromethamine 30 mg 07/17/20 22:09 07/17/20 22:40 Ketorolac 30 Mg/Ml Sdv IVPUSH 07/17/20 22:10 30 mg ONETIME ONE Administration Prochlorperazine Edisylate 10 mg 07/17/20 22:09 07/17/20 22:43 Prochlorperazine 10 Mg/2 Ml Sdv IVPUSH 07/17/20 22:10 10 mg ONETIME ONE Administration - Re-Assessments/Exams Free Text/Narrative Re-Assessment/Exam: 07/17/20 22:48 I reviewed the urinalysis showing 10-20 RBCs and 30-40 WBCs. This is consistent with a urinary tract infection. We will put her on ciprofloxacin 500 mg twice daily for 7 days. Was chosen over Keflex due to the patient's penicillin and cephalosporin allergy. She did have improvement of her headache with the treatment provided including a liter of normal saline, Toradol 30 mg IV push, dexamethasone 10 mg IV push, diphenhydramine 50 mg IV push, and Compazine 10 mg IV push. Departure - Departure Time of Disposition: 23:19 Disposition: Home, Self-Care 01 Clinical Impression: Urinary tract infection in female Migraine headache Qualifiers: Migraine type: unspecified Status migrainosus presence: without status migrainosus Intractability: intractable Qualified Code(s): G43.919 - Migraine, unspecified, intractable, without status migrainosus - Discharge Information Instructions: Urinary Tract Infection, Adult, [id number], Recurrent Migraine Headache, [id number] Referrals: PCP,None [Primary Care Provider] - Forms: ED Department Discharge Care Plan Goals: I have sent a prescription out to the [facility] machine for ciprofloxacin 500 mg. Please take this twice daily for the next 7 days to treat the urinary tract infection. Hopefully your headache will be fully gone after getting some sleep tonight. Return to the ED should you have significant recurrence of symptoms. Drink plenty of fluids to help clear your urinary tract infection. Sepsis Event Note (ED) - Focused Exam Vital Signs: Vital Signs Temp Pulse Resp BP Pulse Ox 07/17/20 22:12 38.2 C H 120 H 15 142/87 H 99 07/17/20 22:10 38.2 C H 120 H 15 142/87 H 99 - Problem List & Annotations (1) Migraine headache SNOMED Code(s): 56897542 Code(s): G43.909 - MIGRAINE, UNSP, NOT INTRACTABLE, WITHOUT STATUS MIGRAINOSUS Status: Acute Priority: High Current Visit: Yes Qualifiers: Migraine type: unspecified Status migrainosus presence: without status migrainosus Intractability: intractable Qualified Code(s): G43.919 - Migraine, unspecified, intractable, without status migrainosus (2) Urinary tract infection in female SNOMED Code(s): 53018556, 086794435 Code(s): N39.0 - URINARY TRACT INFECTION, SITE NOT SPECIFIED Status: Acute Priority: High Current Visit: Yes - Problem List Review Problem List Initiated/Reviewed/Updated: Yes - My Orders Last 24 Hours: My Active Orders 07/17/20 22:09 Sodium Chloride 0.9% [Saline Flush] 10 ml FLUSH ASDIRECTED PRN Saline Lock Insert [OM.PC] Routine - Assessment/Plan Last 24 Hours: My Active Orders 07/17/20 22:09 Sodium Chloride 0.9% [Saline Flush] 10 ml FLUSH ASDIRECTED PRN Saline Lock Insert [OM.PC] Routine
[2020-07-17] MEDS ORDERED: Sodium Chloride 0.9% 1,000 ML IV ONE (22:09)
[2020-07-17] MEDS ORDERED: Prochlorperazine 10 MG/2 ML SDV IVPUSH ONE (22:09)
[2020-07-17] MEDS ORDERED: diphenhydrAMINE 50 MG/ML SDV IVPUSH ONE (22:09)
[2020-07-17] MEDS ORDERED: Ketorolac 30 MG/ML SDV IVPUSH ONE (22:09)
[2020-07-17] MEDS ORDERED: Sodium Chloride 0.9% 10 ML Syringe FLUSH PRN (22:09)
[2020-07-17] MEDS ORDERED: Dexamethasone 4 MG/ML SDV IVPUSH ONE (22:09)
[2020-07-17 22:11] VITALS: BP 142/87; PULSE 120
== END 2020-07-17 23:32 | disposition home or self-care (01) ==
LOC: JP.ED 21:46
DX: N39.0 Urinary tract infection, site not specified (principal); G43.919 Migraine, unspecified, intractable, without status migrainosus; J45.909 Unspecified asthma, uncomplicated; Z88.0 Allergy status to penicillin; Z88.1 Allergy status to other antibiotic agents; Z86.16 Personal history of COVID-19
CPT/HCPCS: 81001; 96374; 96375; 99283; J0780; J1100; J1200; J1885; J7030

== ENCOUNTER 2020-10-08 14:00 | Emergency (ER) | payer MEDICAID ==
[2020-10-08 14:23] VITALS: BP 152/89; PULSE 76
--- NOTE | 2020-10-08 14:59 | EDM.PDOC ---
<Britt Major - Last Filed: 10/08/20 18:22> ED HPI GENERAL MEDICAL PROBLEM - General Chief Complaint: General Stated Complaint: ABCESS Time Seen by Provider: 10/08/20 14:45 Source of Information: Reports: Patient History Limitations: Reports: No Limitations - History of Present Illness INITIAL COMMENTS - FREE TEXT/NARRATIVE: 25 year old female arrives with pain in right lower molar #30. She reports breaking the tooth "a while back" and stuffing it with "artificial tooth". for the last week she has had intense pain that was originally controlled by tylenol and ibuprofen but today those pain medications are no longer working. She has been having fevers and nausea with one episode of vomiting since. Otherwise health individual without other complaints today. Onset: Gradual Onset Date: 10/01/20 Duration: Day(s):, Getting Worse Location: Reports: Other (right lower tooth #30) Quality: Reports: Ache, Throbbing Severity: Severe Improves with: Reports: None, Rest Worsens with: Reports: Eating, Heat Therapy Context: Reports: Other (broke tooth "a while back", now infected for 1 week) Associated Symptoms: Reports: Fever/Chills, Nausea/Vomiting - Related Data Allergies Allergy/AdvReac Type Severity Reaction Status Date / Time cefixime [From Suprax] Allergy Rash Verified 10/08/20 14:29 amoxicillin [From Augmentin] AdvReac Vomiting Verified 10/08/20 14:29 clavulanic acid AdvReac Vomiting Verified 10/08/20 14:29 [From Augmentin] Home Meds: Home Meds Albuterol [Ventolin HFA] 2 puff INH BID PRN 08/25/16 [History] Albuterol/Ipratropium [Combivent Respimat] 2 puff INH QID PRN 08/25/16 [History] Budesonide/Formoterol Fumarate [Symbicort 80-4.5 Mcg Inhaler] 1 puff IH DAILY 08/25/16 [History] Albuterol/Ipratropium [DuoNeb 3.0-0.5 MG/3 ML] 1 ampule INH Q4H PRN 10/03/17 [History] Past Medical History - Past Health History Medical/Surgical History: Denies Medical/Surgical History Respiratory History: Reports: Asthma 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: Reports: GERD 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 Neurological History: Reports: Concussion, Migraines Psychiatric History: Reports: Anxiety - Infectious Disease History Infectious Disease History: Reports: Chicken Pox, Novel Coronavirus Social & Family History - Family History Family Medical History: No Pertinent Family History - Tobacco Use Tobacco Use Status *Q: Never Tobacco User - Caffeine Use Caffeine Use: Reports: Soda - Living Situation & Occupation Living situation: Reports: with Family Occupation: Employed ED ROS GENERAL - Review of Systems Review Of Systems: See Below Constitutional: Reports: Fever, Chills HEENT: Reports: Dental Pain (right lower molar #30, erythemic, edematous, painful) Respiratory: Reports: No Symptoms. Denies: Shortness of Breath, Wheezing, Cough Cardiovascular: Reports: No Symptoms. Denies: Chest Pain, Lightheadedness, Palpitations, Syncope Endocrine: Reports: No Symptoms. Denies: Fatigue GI/Abdominal: Reports: Nausea, Vomiting. Denies: Abdominal Pain, Diarrhea, Difficulty Swallowing : Reports: No Symptoms. Denies: Flank Pain, Hematuria Musculoskeletal: Reports: Neck Pain (mild right sided neck pain radiating down from tooth) Skin: Reports: No Symptoms Neurological: Reports: No Symptoms Psychiatric: Reports: No Symptoms Hematologic/Lymphatic: Reports: No Symptoms Immunologic: Reports: No Symptoms ED EXAM, GENERAL - Physical Exam Exam: See Below Free Text/Narrative:: Nancie is well appearing resting on exam chair. Respirations are regular and non labored. skin is warm and dry. She is alert and oriented. No facial swelling noted but local swelling to the right lower gum tissue surrounding molar #30. Tooth appears cracked with some yellow debris. Abdomen is non tender, active bowel sounds. No pedal edema, rash or injuries. Exam Limited By: No Limitations General Appearance: Alert, WD/WN, No Apparent Distress Ears: Normal External Exam Nose: Normal Inspection, Normal Mucosa Throat/Mouth: Normal Voice, No Airway Compromise, Other (right lower molar pain X30) Head: Atraumatic Neck: Normal Inspection, Non-Tender Respiratory/Chest: No Respiratory Distress, Lungs Clear, Normal Breath Sounds. No: Respiratory Distress, Decreased Breath Sounds, Accessory Muscle Use Cardiovascular: Normal Peripheral Pulses GI/Abdominal: Soft, Non-Tender. No: Distended, Rebound, Tender (Female) Exam: Deferred Rectal (Female) Exam: Deferred Back Exam: Normal Inspection, Full Range of Motion Extremities: Normal Inspection, Normal Range of Motion, Non-Tender Neurological: Alert, Normal Cognition, Normal Gait Psychiatric: Normal Affect, Normal Mood Skin Exam: Warm, Dry, Intact, Normal Color Lymphatic: No Adenopathy Course - Vital Signs Text/Narrative:: Called local dentist and patient discharged to appointment there immediately. Patient happy with this outcome. Departure - Departure Time of Disposition: 15:08 Disposition: Home, Self-Care 01 Condition: Good Clinical Impression: Tooth ache - Discharge Information Instructions: Acute Pain, Adult Referrals: Bhakti Marquez MD [Primary Care Provider] - Forms: ED Department Discharge Additional Instructions: go to dentist now :) Sepsis Event Note (ED) - Evaluation Sepsis Screening Result: No Definite Risk <Andrew Phillips - Last Filed: 10/08/20 18:38> Course - Vital Signs Last Recorded V/S: Last Vital Signs Temp 97.7 F 10/08/20 14:30 Pulse 76 10/08/20 14:30 Resp 16 10/08/20 14:30 BP 152/89 H 10/08/20 14:30 Pulse Ox 97 10/08/20 14:30 Sepsis Event Note (ED) - Focused Exam Vital Signs: Vital Signs Temp Pulse Resp BP Pulse Ox 10/08/20 14:30 97.7 F 76 16 152/89 H 97 10/08/20 14:22 97.7 F 76 16 152/89 H 97 Attestation - Student - Attestation Statement Attestation Statement: I personally performed or re-performed the physical examination and medical decision making. I have verified all student documentation or findings, including history, physical exam and/or medical decision making.
== END 2020-10-08 15:08 | disposition home or self-care (01) ==
LOC: JP.ED 14:00
DX: K08.89 Other specified disorders of teeth and supporting structures (principal); J45.909 Unspecified asthma, uncomplicated; Z86.16 Personal history of COVID-19; Z88.1 Allergy status to other antibiotic agents; Z88.0 Allergy status to penicillin; Z79.899 Other long term (current) drug therapy
CPT/HCPCS: 99282

== ENCOUNTER 2021-01-06 16:33 | Emergency (ER) | payer MEDICAID ==
[2021-01-06 16:57] VITALS: BP 144/87; PULSE 98
--- NOTE | 2021-01-06 18:17 | EDM.PDOC ---
ED HPI GENERAL MEDICAL PROBLEM - General Chief Complaint: Abdominal Pain Stated Complaint: LEFT SIDE PAIN Time Seen by Provider: 01/06/21 17:20 Source of Information: Reports: Patient History Limitations: Reports: No Limitations - History of Present Illness INITIAL COMMENTS - FREE TEXT/NARRATIVE: 25-year-old female with left-sided abdominal pain for the past 2 or 3 days. No trauma, no nausea or vomiting, she has some pain just before urination but urination itself is normal. 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 She just finished her menstrual cycle, no significant history of ovarian cysts. No pain that radiates to the back, no other symptoms such as nausea or vomiting, chest pain or shortness of breath. 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: Reports: Other (see below) (Has tried Tylenol with only mild relief) Left Abdomen Pain Score (Numeric/FACES): 7 - Related Data Allergies Allergy/AdvReac Type Severity Reaction Status Date / Time cefixime [From Suprax] Allergy Rash Verified 10/08/20 14:29 amoxicillin [From Augmentin] AdvReac Vomiting Verified 10/08/20 14:29 clavulanic acid AdvReac Vomiting Verified 10/08/20 14:29 [From Augmentin] Home Meds: Home Meds Albuterol [Ventolin HFA] 2 puff INH BID PRN 08/25/16 [History] Albuterol/Ipratropium [Combivent Respimat] 2 puff INH QID PRN 08/25/16 [History] Budesonide/Formoterol Fumarate [Symbicort 80-4.5 Mcg Inhaler] 1 puff IH DAILY 08/25/16 [History] Albuterol/Ipratropium [DuoNeb 3.0-0.5 MG/3 ML] 1 ampule INH Q4H PRN 10/03/17 [History] Montelukast [Singulair] 10 mg PO DAILY 01/06/21 [History] Past Medical History - Past Health History Medical/Surgical History: Denies Medical/Surgical History Respiratory History: Reports: Asthma 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: Reports: GERD 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: G-2 p-1 Neurological History: Reports: Concussion, Migraines Psychiatric History: Reports: Anxiety - Infectious Disease History Infectious Disease History: Reports: Chicken Pox, Novel Coronavirus Social & Family History - Family History Family Medical History: No Pertinent Family History - Tobacco Use Tobacco Use Status *Q: Never Tobacco User - Caffeine Use Caffeine Use: Reports: Soda - Recreational Drug Use Recreational Drug Use: No - Living Situation & Occupation Living situation: Reports: with Family Occupation: Employed ED ROS GENERAL - Review of Systems Review Of Systems: See Below Constitutional: Denies: Fever, Chills HEENT: Reports: No Symptoms Respiratory: Reports: No Symptoms Cardiovascular: Reports: No Symptoms GI/Abdominal: Reports: Abdominal Pain. Denies: Nausea, Vomiting : Denies: Dysuria, Frequency, Urgency Musculoskeletal: Reports: No Symptoms Skin: Reports: No Symptoms ED EXAM, GI/ABD - Physical Exam Exam: See Below Exam Limited By: No Limitations General Appearance: Alert, No Apparent Distress Eyes: Bilateral: Normal Appearance Head: Atraumatic Respiratory/Chest: No Respiratory Distress, Lungs Clear Cardiovascular: Regular Rate, Rhythm GI/Abdominal Exam: Soft, Tender, Other (Patient does have some mild to moderate rebound tenderness in the left lower quadrant) Extremities: Normal Inspection Neurological: Alert, Oriented Psychiatric: Normal Affect, Normal Mood Skin Exam: Warm, Dry Course - Vital Signs Last Recorded V/S: Last Vital Signs Temp 97.7 F 01/06/21 16:57 Pulse 98 01/06/21 16:57 Resp 16 01/06/21 16:57 BP 144/87 H 01/06/21 16:57 Pulse Ox 98 01/06/21 16:57 - Orders/Labs/Meds Labs: Laboratory Tests 01/06/21 01/06/21 01/06/21 Range/Units 17:12 17:19 17:23 WBC 8.2 (4.5-11.0) K/uL RBC 4.69 (3.30-5.50) M/uL Hgb 12.8 (12.0-15.0) g/dL Hct 39.0 (36.0-48.0) % MCV 83 (80-98) fL MCH 27 (27-31) pg MCHC 33 (32-36) % Plt Count 387 (150-400) K/uL Neut % (Auto) 57.5 (36-66) % Lymph % (Auto) 33.3 (24-44) % [place] % (Auto) 6.8 H (2-6) % Eos % (Auto) 1.6 L (2-4) % Baso % (Auto) 0.8 (0-1) % Sodium (140-148) mmol/L Potassium (3.6-5.2) mmol/L Chloride (100-108) mmol/L Carbon Dioxide (21-32) mmol/L Anion Gap (5.0-14.0) mmol/L BUN (7-18) mg/dL Creatinine (0.6-1.0) mg/dL Est Cr Clr Drug Dosing mL/min Estimated GFR (MDRD) (>60) Glucose (74-106) mg/dL Calcium (8.5-10.1) mg/dL Urine Color Yellow (YELLOW) Urine Appearance Slightly cloudy A (CLEAR) Urine pH 5.5 (5.0-8.0) Ur Specific [place] 1.025 (1.008-1.030) Urine Protein Trace H (NEGATIVE) mg/dL Urine Glucose (UA) 100 H (NEGATIVE) mg/dL Urine Ketones Negative (NEGATIVE) mg/dL Urine Occult Blood Moderate (NEGATIVE) Urine Nitrite Negative (NEGATIVE) Urine Bilirubin Negative (NEGATIVE) Urine Urobilinogen 0.2 (0.2-1.0) EU/dL Ur Leukocyte Esterase Negative (NEGATIVE) Urine RBC 5-10 H (0-5) Urine WBC 0-5 (0-5) Ur Epithelial Cells Moderate Amorphous Sediment Not seen Urine Bacteria Many Urine Mucus Not seen Urine HCG, Qual Negative 01/06/21 Range/Units 17:23 WBC (4.5-11.0) K/uL RBC (3.30-5.50) M/uL Hgb (12.0-15.0) g/dL Hct (36.0-48.0) % MCV (80-98) fL MCH (27-31) pg MCHC (32-36) % Plt Count (150-400) K/uL Neut % (Auto) (36-66) % Lymph % (Auto) (24-44) % [place] % (Auto) (2-6) % Eos % (Auto) (2-4) % Baso % (Auto) (0-1) % Sodium 138 L (140-148) mmol/L Potassium 3.7 (3.6-5.2) mmol/L Chloride 101 (100-108) mmol/L Carbon Dioxide 28 (21-32) mmol/L Anion Gap 12.7 (5.0-14.0) mmol/L BUN 15 (7-18) mg/dL Creatinine 0.9 (0.6-1.0) mg/dL Est Cr Clr Drug Dosing 76.23 mL/min Estimated GFR (MDRD) > 60 (>60) Glucose 91 (74-106) mg/dL Calcium 9.0 (8.5-10.1) mg/dL Urine Color (YELLOW) Urine Appearance (CLEAR) Urine pH (5.0-8.0) Ur Specific [place] (1.008-1.030) Urine Protein (NEGATIVE) mg/dL Urine Glucose (UA) (NEGATIVE) mg/dL Urine Ketones (NEGATIVE) mg/dL Urine Occult Blood (NEGATIVE) Urine Nitrite (NEGATIVE) Urine Bilirubin (NEGATIVE) Urine Urobilinogen (0.2-1.0) EU/dL Ur Leukocyte Esterase (NEGATIVE) Urine RBC (0-5) Urine WBC (0-5) Ur Epithelial Cells Amorphous Sediment Urine Bacteria Urine Mucus Urine HCG, Qual - Re-Assessments/Exams Free Text/Narrative Re-Assessment/Exam: 01/06/21 18:19 Patient's labs returned normal other than some mild findings in her urine including RBCs and few bacteria, however she also had epithelial cells. CBC was normal, BMP normal. Urine was negative. This likely is ovarian pain, patient will be placed on ketorolac 3 times a day for the next 3 days and encouraged to increase activity as tolerated, and she can return at any time if worsening. Departure - Departure Time of Disposition: 18:23 Disposition: Home, Self-Care 01 Clinical Impression: Abdominal pain Qualifiers: Abdominal location: left lower quadrant Qualified Code(s): R10.32 - Left lower quadrant pain - Discharge Information Instructions: Abdominal Pain, Adult, [id number] Referrals: Bhakti Marquez MD [Primary Care Provider] - Forms: ED Department Discharge Care Plan Goals: Take Toradol every 6-8 hours until gone, and add Tylenol if needed for extra pain control. Increase activity as tolerated and consider rechecking in 2 to 3 days if unable to go back to work without significant discomfort. Return sooner if worsening at any time. Sepsis Event Note (ED) - Evaluation Sepsis Screening Result: No Definite Risk
== END 2021-01-06 18:27 | disposition home or self-care (01) ==
LOC: JP.ED 16:33
DX: R10.32 Left lower quadrant pain (principal); Z88.1 Allergy status to other antibiotic agents; Z88.0 Allergy status to penicillin
CPT/HCPCS: 36415; 80048; 81001; 81025; 85025; 99284

== ENCOUNTER 2021-10-02 18:01 | Emergency (ER) | payer MEDICAID ==
[2021-10-02 18:15] VITALS: BP 161/96; PULSE 92
[2021-10-02 19:11] LABS: ESTIMATED GFR 80 mL/min (>60)
== END 2021-10-02 19:50 | disposition home or self-care (01) ==
LOC: JP.ED 18:01
DX: U07.1 COVID-19 (principal); Z88.1 Allergy status to other antibiotic agents; Z88.0 Allergy status to penicillin; Z86.16 Personal history of COVID-19
CPT/HCPCS: 36415; 71045; 71045-26; 80053; 82728; 83605; 83615; 84145; 85025; 85379; 86140; 87081; 87880-QW; 99281; 99283; U0002

== ENCOUNTER 2021-10-23 00:15 | Emergency (ER) | payer MEDICAID ==
[2021-10-23 00:28] VITALS: BP 149/101; PULSE 101
[2021-10-23] MEDS ORDERED: Ondansetron 4 MG/2 ML SDV IVPUSH ONE (01:06)
[2021-10-23] MEDS ORDERED: Lactated Ringers 1,000 ML IV SCH (01:15)
[2021-10-23] MEDS ORDERED: Sodium Chloride 0.9% 10 ML Syringe FLUSH PRN (01:30)
[2021-10-23 05:53] LABS: ESTIMATED GFR 80 mL/min (>60)
== END 2021-10-23 02:36 | disposition home or self-care (01) ==
LOC: JP.ED 00:15
DX: K52.9 Noninfective gastroenteritis and colitis, unspecified (principal); Z88.1 Allergy status to other antibiotic agents; Z88.0 Allergy status to penicillin; Z86.16 Personal history of COVID-19
CPT/HCPCS: 36415; 80053; 83605; 83690; 85025; 85379; 96361; 96374; 99284; J2405; J3490; J7120

== ENCOUNTER 2022-01-02 13:25 | Emergency (ER) | payer MEDICAID ==
[2022-01-02 13:44] VITALS: BP 155/91; PULSE 83
== END 2022-01-02 14:40 | disposition home or self-care (01) ==
LOC: JP.ED 13:25
DX: J06.9 Acute upper respiratory infection, unspecified (principal); Z20.822 Contact with and (suspected) exposure to COVID-19; Z88.0 Allergy status to penicillin; Z88.1 Allergy status to other antibiotic agents; Z79.899 Other long term (current) drug therapy; Z86.16 Personal history of COVID-19
CPT/HCPCS: 99284; U0002

== ENCOUNTER 2022-04-09 01:51 | Emergency (ER) | payer MEDICAID ==
[2022-04-09] MEDS ORDERED: Ondansetron 4 MG Tab.DIS PO ONE (02:30)
[2022-04-09 03:20] VITALS: BP 139/89; PULSE 100
== END 2022-04-09 03:40 | disposition home or self-care (01) ==
LOC: JP.ED 01:51
DX: A08.4 Viral intestinal infection, unspecified (principal); R00.1 Bradycardia, unspecified; I10 Essential (primary) hypertension; Z88.0 Allergy status to penicillin; Z88.1 Allergy status to other antibiotic agents; Z86.16 Personal history of COVID-19; Z87.59 Personal history of other complications of pregnancy, childbirth and the puerperium
CPT/HCPCS: 36415; 80305-QW; 81025; 84439; 84443; 93005; 93010; 99283; 99284; Q0162

== ENCOUNTER 2023-02-22 10:01 | Emergency (ER) | payer MEDICAID ==
[2023-02-22 11:03] VITALS: BP 147/92; PULSE 86
[2023-02-22 12:03] LABS: INFLUENZA A NAA NEGATIVE (NEGATIVE); INFLUENZA B NAA NEGATIVE (NEGATIVE); RESPIRATORY SYNCYTIAL VIR NAA NEGATIVE (NEGATIVE)
[2023-02-22 12:05] LABS: CORONAVIRUS COVID-19 NAA POSITIVE (NEGATIVE)
== END 2023-02-22 13:33 | disposition home or self-care (01) ==
LOC: JP.ED 10:01
DX: U07.1 COVID-19 (principal); J45.909 Unspecified asthma, uncomplicated; Z79.899 Other long term (current) drug therapy; Z88.0 Allergy status to penicillin; Z88.1 Allergy status to other antibiotic agents
CPT/HCPCS: 0241U; 99283

== ENCOUNTER 2024-02-26 09:23 | Emergency (ER) | payer SELFPAY ==
[2024-02-26] MEDS ORDERED: Sodium Chloride 0.9% 10 ML Syringe FLUSH PRN (10:39)
[2024-02-26 10:50] LABS: BASOPHILS PERCENT AUTO 0.2 % (0.1-1.3); EOSINOPHILS ABSOLUTE AUTO 0.03 K/uL (0.00-0.40); EOSINOPHILS PERCENT AUTO 0.3 % (0.0-5.4); HEMATOCRIT 40.2 % (34.3-46.0); HEMOGLOBIN 14.1 g/dL (11.2-15.5); IMMATURE GRAN PERCENT AUTO 0.2 % (0.0-0.7); LYMPHOCYTES PERCENT AUTO 4.8 % (11.4-47.7); MEAN CORPUSCULAR HGB CONC 35.1 g/dL (31.6-35.5); MEAN CORPUSCULAR VOLUME 85.5 fL (81.4-99.0); MONOCYTES ABSOLUTE AUTO 0.52 K/uL (0.20-0.90); NEUTROPHILS ABSOLUTE AUTO 9.41 K/uL (1.0-7.6); NEUTROPHILS PERCENT AUTO 89.5 % (40.0-78.1); PLATELET COUNT,PLT 289 K/uL (130-375); WHITE BLOOD CELL COUNT,WBC 10.5 K/uL (3.2-11.0)
[2024-02-26] MEDS: Lactated Ringers 1,000 ML IV ONE (10:55)
[2024-02-26] MEDS: Ondansetron 4 MG/2 ML SDV IVPUSH ONE (11:01)
[2024-02-26 11:03] LABS: BASOPHILS ABSOLUTE AUTO 0.02 K/uL (0.00-0.10); IMMATURE GRAN ABSOLUTE AUTO 0.02 K/uL (0.00-0.23)
[2024-02-26 11:08] LABS: ANION GAP 9.5 mmol/L (5.0-14.0); CALCIUM 9.2 mg/dL (8.5-10.1); EST CRCL DRUG DOSING (CG) 66.24 mL/min; POTASSIUM,K 4.1 mmol/L (3.6-5.2)
[2024-02-26 11:16] VITALS: BP 120/66; PULSE 74
== END 2024-02-26 12:14 | disposition home or self-care (01) ==
LOC: JP.ED 09:23
DX: A08.4 Viral intestinal infection, unspecified (principal); I10 Essential (primary) hypertension; J45.909 Unspecified asthma, uncomplicated; K21.9 Gastro-esophageal reflux disease without esophagitis; Z86.16 Personal history of COVID-19; Z79.899 Other long term (current) drug therapy; Z88.0 Allergy status to penicillin; Z88.8 Allergy status to other drugs, medicaments and biological substances
CPT/HCPCS: 36415; 80048; 83605; 85025; 87428; 96361; 96374; 99284; J2405; J7120

== ENCOUNTER 2024-06-25 11:55 | Emergency (ER) | payer OTHER ==
[2024-06-25 12:17] VITALS: BP 133/84; PULSE 76
[2024-06-25] MEDS: Cyclobenzaprine 5 MG Tab PO ONE (13:05)
== END 2024-06-25 13:47 | disposition home or self-care (01) ==
LOC: JP.ED 11:55
DX: S49.91XA Unspecified injury of right shoulder and upper arm, initial encounter (principal); Z88.0 Allergy status to penicillin; Z79.51 Long term (current) use of inhaled steroids; Z79.899 Other long term (current) drug therapy; Z86.16 Personal history of COVID-19; W55.12XA Struck by horse, initial encounter; Y93.89 Activity, other specified
CPT/HCPCS: 70450; 72100; 73030; 99284; A9270; 99283